=== PATIENT | female | born 1985 | race Asian ===

== ENCOUNTER → 2020-07-20 10:21 | Outpatient (CLI) | payer BC, SELFPAY ==
--- NOTE | ~2020-07-20 | US_ITS ---
EXAMINATION: US thyroid DATE: 07/20/2020 10:43 INDICATION: Dysphagia. Anterior neck pain. TECHNIQUE: Multiple ultrasound images of the thyroid were obtained. COMPARISON: None. FINDINGS: The right thyroid lobe measures 5.5 x 1.1 x 1.9 cm. The left thyroid lobe measures 5.1 x 1.5 x 2.0 c m. In the left thyroid lobe, there is a 6 mm solid, very hypoechoic, feqph-grdy-vmxc nodule with ill -defined margin without echogenic foci (TI-RADS TR4). In the left thyroid lobe, there is a 6 mm solid , very hypoechoic, eikju-wdag-ipjo nodule with smooth margin without echogenic foci (TR4). In the lef t thyroid lobe, there is a 5 mm solid, very hypoechoic, xfyiq-injz-vemf nodule with smooth margin wit hout echogenic foci (TR4). IMPRESSION: 1. Small thyroid nodules, likely not clinically significant. No follow-up is needed. Reviewed, dictated and finalized at location A. LABOR DELIVERY IMPRESSION: 1. Small thyroid nodules, likely not clinically significant. No follow-up is ne eded.
== END ==
PROVIDERS: PCP Registered Nurse; Visit Provider Registered Nurse
DX: R13.10 Dysphagia, unspecified (principal); Z68.27 Body mass index [BMI] 27.0-27.9, adult; M54.2 Cervicalgia; E04.2 Nontoxic multinodular goiter
CPT/HCPCS: 76536

== ENCOUNTER 2024-12-10 21:29 | Observation (INO) | payer OTHER, SELFPAY ==
--- NOTE | ~2024-12-10 | CT_ITS ---
CLINICAL INDICATION: COMPARISON: . TECHNIQUE: Multiple contiguous axial images of the abdomen and pelvis were performed following the ad ministration of with 100 mL Omnipaque-350 intravenous contrast The dose-length product (DLP) was 406.65 mGy-cm. Automated exposure control and iterative reconstruction technique were employed. FINDINGS/OBSERVATIONS: Visualized lower thorax: The bilateral lung bases are clear. The heart is of normal size, without pericardial effusion. Small hiatal hernia is present. Liver: The liver demonstrates homogeneous enhancement and is not enlarged. Gallbladder and biliary system: The gallbladder is only minimally distended, and otherwise unremarkable. Pancreas: The pancreas enhances homogeneously without ductal dilatation. Spleen: The spleen enhances homogeneously and is not enlarged. Kidneys: The bilateral kidneys enhance symmetrically without hydronephrosis or renal calculi. Adrenal glands: Unremarkable. Gastrointestinal tract: Fecal stasis within the colon. Appendix: The appendix is fluid-filled, and hyperemic. The caliber of the appendix is increased measuring up to 9.5 mm. Significant surrounding inflammatory change is present. These findings taken together are co nsistent with acute appendicitis, for which clinical correlation is needed. Vasculature: Unremarkable. Lymph nodes: No pathologically enlarged or morphologically suspicious lymph nodes within the retroperitoneum or at the root of the mesentery. Pelvic structures: The bladder is decompressed and otherwise unremarkable. The uterus is anteverted and anteflexed. Body wall and musculoskeletal: Small fat-containing umbilical hernia. No significant degenerative disease within the lower thoracic or lumbosacral spine. IMPRESSION: Acute appendicitis, as detailed above. Reviewed, dictated and finalized at location A.
[2024-12-10 21:31] VITALS: BP 124/93; PULSE 112; RESP 15; TEMP 36.1; O2SAT 100
--- OUTSIDE RECORDS SUMMARY | 2024-12-10 21:32 | XMS_ITS | Clinical Summary ---
Author Organization [facility] Address [address] [place] [id number] Care Team Providers Care Yarn Conditioner Name Role Phone Adriana Sousa Rao ROSARIO Primary Care Provider [phone] Allergies No known active allergies Medications Vitamin D, Ergocalciferol, 19782 units CapIndications: Vitamin D deficiency Take 1 capsule by mouth once a week. 12 capsule 12/22/2022 Active Active Problems Problem Noted Date Diagnosed Date Vitamin D deficiency 08/31/2018 Resolved Problems Problem Noted Date Diagnosed Date Resolved Date BMI 27.0-27.9,adult 08/31/2018 12/07/19 23 Family History * Patient is adopted Medical History Relation Comments No Known Problems Daughter 1 No Known Problems Daughter 2 No Known Problems Son Relation Status Comments Daughter 1 Alive Daughter 2 Alive Son Alive Social History Tobacco Use Types Packs/Day Years Used Date Smoking Tobacco: Every Day Cigarettes Smokeless Tobacco: Never Tobacco Cessation:Ready to Q uit: No; Counseling Given: Yes Comments:2-3 cigs per day for the last 1 year Alcohol Use Standard Drinks/Week Comments Not Currently 0 (1 standard drink = 0.6 oz pur e alcohol) AUDIT-C Answer Date Recorded Frequency of Alcohol Consumption 2-4 times a mon08/31/2018 Average Number of Drinks Not on file 019 Frequency of Binge Drinking Not on file 08/08 PHQ-2 Answer Date Recorded Patient Health Questionnaire-2 Score 0 12/06/2022 Comments No Sex and Gender Information Value Date Recorded Sex Assigned at Not on file Legal Sex Female 6:56 PM CDT Gender Identity Not on file Sexual Orientation Not on file Last Filed Vital Signs Vital Sign Reading Time Taken Comments Blood Pressure 104/76 12/06/2022 9:36 AM CDT Pulse 80 12/06/2022 9:36 AM CDT Temperature 36.7 C (98.1 F) 12/06/2022 9:36 AM CDT Respiratory Rate 18 12/06/2022 9:36 AM CDT Oxygen Saturation 98% 12/06/2022 9:36 AM CDT Inhaled Oxygen Concentration - - Weight 70.2 kg (154 lb 12.8 oz) 12/06/2022 9:36 AM CDT Height 157.5 cm (5' 2 ) 12/06/2022 9:36 AM CDT Body Mass Index 28.31 12/06/2022 9:36 AM CDT Plan of Treatment Health Maintenance Due Date Last Done Comments Cervical Cancer Screening Pa p Smear (Age 30 to 64) Every 3 Years 1987 Hepatitis B Vaccines (1 of 3 - 19+ 3-dose series) 2006 Pneumococcal Vaccine: Pediat rics (0 to 5 Years) and At-Risk Patients (6 to 49 Years) (1 of 2 - PCV) 2006 Cervical Cancer Screening Pa p with HPV Testing (Age 30 to 64) Every 5 Years 2017 Cervical Cancer Screening with HPV 2017 Annual Physical 12/07/2023 12/06/2022 COVID-19 Vaccine (2023-2 5 season) 2024 PHQ-2 (Physician [place]) 08/07/2024 12/06/2022 DTaP, Tdap and Td Vaccines ( 2 - Td or Tdap) 03/03/2026 03/03/2016 Hepatitis C Completed 07/09/2020 HPV Vaccines Aged Out No longer eligi ble based on patient's age to complete this topic Meningococcal B Vaccine Aged Out No l onger eligible based on patient's age to complete this topic Meningococcal Vaccine Aged Out No samantha jad eligible based on patient's age to complete this topic RSV Immunizations Under 20 Months Aged Out No longer eligible based on patient's age to complete this topic Procedures Procedure Name Priority Date/Time Associated Diagnosis Comments HEPATITIS C ANTIBODY W/RFX TO HCV RNA Routine 07/09/2020 2:48 PM WIND TURBINE SERVICE TECHNICIAN from Last 3 Months or Most Recently Relevant to Health Maintenance Results * HEPATITIS C ANTIBODY W/RFX TO HCV RNA (07/09/2020 2:48 PM WIND TURBINE SERVICE TECHNICIAN) HEPATITIS C AB NON-REACTI VE NON-REACT ROSITA [facility] SIGNAL TO CUTOFF 0.01 <[address] [facility] Comment: HCV antibody was non-reactive. There is no laboratory evidence of HCV infection. In most cases, no further action is required. However, if recent HCV exposure is suspected, a test for HCV RNA (test code 20632) is suggested. For additional information please refer to http://education.Peerby/faq/JLU03b3 (This link is being provided for informational/ educational purposes only.) 07/09/2020 2:48 PM WIND TURBINE SERVICE TECHNICIAN 07/09/2020 2:51 PM WIND TURBINE SERVICE TECHNICIAN Narrative [facility] - 07/14/2020 11:29 AM WIND TURBINE SERVICE TECHNICIAN FASTING:YES FASTING: YES Adriana ROSARIO LABORATORY Final Resul t [facility] [id number] [place] [id number] from Last 3 Months or Most Recently Relevant to Health Maintenance Insurance [employer] Care Teams Yarn Conditioner Relationship Specialty Start Date End Date Adriana Sousa APNP [address] [place] [address] PCP - General NURSE PRACTITIONER 08/31/18
--- OUTSIDE RECORDS SUMMARY | 2024-12-10 21:32 | XMS_ITS | Clinical Summary ---
Author Organization [facility] Address [address] [place] [address] Care Team Providers Care Crown Perforator Operator Name Role Phone Unavailable Primary Care Provider Unavailabl e Source Comments [facility],non-owned Affiliates and Associated Physician Practices is amultiple site organization consisting of ambulatory clinics and hospital sitesin [place], [place], [place] and [place]. This disclosure is being madepursuant to the Care Everywhere program and may not contain all information available regarding this patient. Last updated 18.[employer] Allergies No known active allergies Medications * Be aware that medications may not be up to date on this document. Alwaysverify current medications with the patient. No known medications Social History Tobacco Use Types Packs/Day Years Used Date Smoking Tobacco: Never Smokeless Tobacco: Never Comments Unknown Sex and Gender Information Value Date Recorded Sex Assigned at Not on file Legal Sex Female 10:05 AM CDT Gender Identity Not on file Sexual Orientation Not on file Last Filed Vital Signs Vital Sign Reading Time Taken Comments Blood Pressure 106/68 04/21/2017 3:24 PM CDT Pulse 63 04/21/2017 3:24 PM CDT Temperature 36.7 C (98.1 F) 04/21/2017 3:24 PM CDT Respiratory Rate 16 04/21/2017 3:24 PM CDT Oxygen Saturation 98% 04/21/2017 3:24 PM CDT Inhaled Oxygen Concentration - - Weight 68 kg (150 lb) 04/21/2017 3:24 PM CDT Height 157.5 cm (5' 2 ) 04/21/2017 3:24 PM CDT Body Mass Index 27.44 04/21/2017 3:24 PM CDT Plan of Treatment Health Maintenance Due Date Last Done Comments HIV SCREENING 2002 HEPATITIS C SCREENING 09/21/2005 DTAP/TDAP/TD VACCINES (1 - Tdap) 2006 HEPATITIS B VACCINE (1 of 3 - 19+ 3-dose series) 2006 COVID-19 VACCINE (1 - 2023-2 5 season) 2024 DEPRESSION SCREENING 08/07/2024 INFLUENZA VACCINE (Season Ended) 2025 ZOSTER VACCINE (1 of 2) 2037 HIB VACCINE Aged Out No longer eligi ble based on patient's age to complete this topic HPV VACCINE Aged Out No longer eligi ble based on patient's age to complete this topic MENINGOCOCCAL (Group B) VACC INE SHARED DECISION-MAKING Aged Out No longer eligibl e based on patient's age to complete this topic MENINGOCOCCAL GROUPS A/C/Y/W VACCINE Aged Out No longer eligible b ased on patient's age to complete this topic PNEUMOCOCCAL VACCINE Aged Out No long er eligible based on patient's age to complete this topic Insurance [facility] [place] [id number] ANTH
--- OUTSIDE RECORDS SUMMARY | 2024-12-10 21:32 | XMS_ITS | Data Portability ---
Author Organization [facility] [place] Address [address] [place] [address] Care Team Providers Care Bottle Dealer Name Role Phone ARACELI GAMBLE Primary Care Provider Assessment No assessment recorded. Plan of Treatment Reminders Order Date Submit Date Provider Last Modified By Organization Details Last Modified Time Details Appointments None recorded. Lab beta-HCG, qualitative , serum or plasma 2021 [facility] (Lab), [address], [place], [address], 04:17:35 CBC w/ auto diff 2021 [facility] (Lab), [address] [place], [address], 2 04:17:31 CMP, serum or plasma 2021 [facility] (Lab), [address] [place], [address], 2 04:17:32 HbA1c (hemoglobin A1c), blood 2021 [facility] (Lab), [address] [place], [address], 2 04:17:32 TSH, serum or plasma 2021 [facility] (Lab), [address] [place], [address], 04:17:33 prolactin, serum 2021 [facility] (Lab), [address], [place], [address], 2 04:17:33 FSH (follicle-s timulating hormone), serum 2021 [facility] (Lab), [address], [place], [address], 04:17:34 lh (luteinizin g hormone), serum 2021 [facility] (Lab), [address], [place], [address], 04:17:34 Referral None recorded. Procedures None recorded. Surgeries None recorded. Imaging US, pelvis [address], [facility] [address], [address], [place], [address], 21:38:29 US, transvagina l [address], [facility] [address], [address], [place], [address], 21:38:29 US, pelvis, complete 2021 [facility] [address], [address], [place], [address], 05:01:41 Medication Orders None recorded. Patient TargetsNo targets recorded. Patient InstructionsNo instructions recorded. Reason for Referral None Reported. Results Created Date Observation Date Name Description Value Unit Range Abnormal Flag Note LastModifiedBy Organization Detail LastModifiedTime 07/15/20 22 07/15/2022 CBC W/DIF F WBC 6.2 10'3/ uL 3.6-10 .2 Not Available [facility] (Lab) [address], [place], [address], 07/16/2022 04:17:31 07/15/20 22 07/15/2022 CBC W/DIF F RBC 4.25 10'6/ uL (based on docume nted legal sex) 4.10-5 .30 Not Available [facility] (Lab) [address], [place], [address], 07/16/2022 04:17:31 07/15/20 22 07/15/2022 CBC W/DIF F HGB 12.2 g/dL (based on docume nted legal sex) 11.9-1 5.8 Not Available [facility] (Lab) [address], [place], [address], 07/16/2022 04:17:31 07/15/20 22 07/15/2022 CBC W/DIF F HCT 38.4 % (based on docume nted legal sex) 37.4-4 8.3 Not Available [facility] (Lab) [address], [place], [address], 07/16/2022 04:17:31 07/15/20 22 07/15/2022 CBC W/DIF F MCV 90.4 fL 82.0-9 9.0 Not Available [facility] (Lab) [address], [place], [address], 07/16/2022 04:17:31 07/15/20 22 07/15/2022 CBC W/DIF F MCH 28.7 pg 27.0-3 3.0 Not Available [facility] (Lab) [address], [place], [address], 07/16/2022 04:17:31 07/15/20 22 07/15/2022 CBC W/DIF F MCHC 31.8 g/dL 32.0-3 6.0 low Not Available [facility] (Lab) [address], [place], [address], 07/16/2022 04:17:31 07/15/20 22 07/15/2022 CBC W/DIF F RDW 12.3 % 11.0-1 5.0 Not Available [facility] (Lab) [address], [place], [address], 07/16/2022 04:17:31 07/15/20 22 07/15/2022 CBC W/DIF F plt 332 10'3/ uL 150-45 0 Not Available [facility] (Lab) [address], [place], [address], 07/16/2022 04:17:31 07/15/20 22 07/15/2022 CBC W/DIF F MPV 10.7 fL 9.8-12 .7 Not Available [facility] (Lab) [address], [place], [address], 07/16/2022 04:17:31 07/15/20 22 07/15/2022 CBC W/DIF F NRBC's 0.0 % 0 Not Available [facility] (Lab) [address], [place], [address], 07/16/2022 04:17:31 07/15/20 22 07/15/2022 CBC W/DIF F absolute NRBCs 0.0 10'3/ uL 0 Not Available [facility] (Lab) [address], [place], [address], 07/16/2022 04:17:31 07/15/20 22 07/15/2022 CBC W/DIF F neutrophils 63.1 % 37.0-7 2.0 Not Available [facility] (Lab) [address], [place], [address], 07/16/2022 04:17:31 07/15/20 22 07/15/2022 CBC W/DIF F lymphocytes 30.3 % 16.0-4 8.0 Not Available [facility] (Lab) [address], [place], [address], 07/16/2022 04:17:31 07/15/20 22 07/15/2022 CBC W/DIF F monocytes 3.5 % 4.0-14 .0 low Not Available [facility] (Lab) [address], [place], [address], 07/16/2022 04:17:31 07/15/20 22 07/15/2022 CBC W/DIF F eosinophils 2.1 % 0.0-9. 0 Not Available [facility] (Lab) [address] [facility], [place], [address], 07/16/2022 04:17:31 07/15/20 22 07/15/2022 CBC W/DIF F basophils 0.8 % 0.0-2. 0 Not Available [facility] (Lab) [address] [facility], [place], [address], 07/16/2022 04:17:31 07/15/20 22 07/15/2022 CBC W/DIF F immature granulocytes 0.2 % no define d refere nce range Not Available [facility] (Lab) [address], [place], [address], 07/16/2022 04:17:31 07/15/20 22 07/15/2022 CBC W/DIF F absolute neutrophils 3.9 10'3/ uL 1.1-6. 0 Not Available [facility] (Lab) [address] [facility], [place], [address], 07/16/2022 04:17:31 07/15/20 22 07/15/2022 CBC W/DIF F absolute lymphocytes 1.9 10'3/ uL 0.7-3. 4 Not Available [facility] (Lab) [address] [facility], [place], [address], 07/16/2022 04:17:31 07/15/20 22 07/15/2022 CBC W/DIF F absolute monocytes 0.2 10'3/ uL 0.3-1. 0 low Not Available [facility] (Lab) [address] [facility], [place], [address], 07/16/2022 04:17:31 07/15/20 22 07/15/2022 CBC W/DIF F absolute eosinophils 0.1 10'3/ uL 0.0-0. 6 Not Available [facility] (Lab) [address] [facility], [place], [address], 07/16/2022 04:17:31 07/15/20 22 07/15/2022 CBC W/DIF F absolute basophils 0.1 10'3/ uL 0.0-0. 1 Not Available [facility] (Lab) [address] [facility], [place], [address], 07/16/2022 04:17:31 07/15/20 22 07/15/2022 CBC W/DIF F absolute immature granulocytes 0.0 10'3/ uL 0.00-0 .10 07/16 12:59 AM: P indic ates parti al resul ts on a panel have been relea sed. Addit ional resul ts will follo w. 07/16 12:59 AM: This resul t has been final verif ied. No addit ional or najera ed resul ts are expec kim. Not Available [facility] (Lab) [address] [facility], [place], [address], 07/16/2022 04:17:31 07/15/20 22 07/15/2022 HEMOG LOBIN A1C hemoglobin A1C 5.5 % 0-5.6 The Ameri can Diabe erum Assoc iatio n recom mends that a prima ry goal of thera py shelly valle be a HBA1C of < 7% and that physi cians shoul d reeva luate the treat ment regim en in patie nts with HBA1C value s consi stent ly > 8%. <5.7% Marce l 5.7 - 6.4% Incre ased risk for diabe erum >=6.5 % Diagn ostic of diabe erum <7.0% Goal of thera py >8.0% Actio n sugge sted Not Available [facility] (Lab) [address] [facility], [place], [address], 07/16/2022 04:17:32 07/15/20 22 07/15/2022 CMP(C OMPRE HENSI VE METAB OLIC PANEL ) sodium 139 mmol/ L 133-14 6 Not Available [facility] (Lab) [address] [facility], [place], [address], 07/16/2022 04:17:32 07/15/20 22 07/15/2022 CMP(C OMPRE HENSI VE METAB OLIC PANEL ) potassium 3.7 mmol/ L 3.5-5. 1 Not Available [facility] (Lab) [address] [facility], [place], [address], 07/16/2022 04:17:32 07/15/20 22 07/15/2022 CMP(C OMPRE HENSI VE METAB OLIC PANEL ) chloride 103 mmol/ L 98-107 Not Available [facility] (Lab) [address] [facility], [place], [address], 07/16/2022 04:17:32 07/15/20 22 07/15/2022 CMP(C OMPRE HENSI VE METAB OLIC PANEL ) carbon dioxide 28 mmol/ L 21-31 Not Available [facility] (Lab) [address] [facility], [place], [address], 07/16/2022 04:17:32 07/15/20 22 07/15/2022 CMP(C OMPRE HENSI VE METAB OLIC PANEL ) anion gap 8 mmol/ L 4-13 Not Available [facility] (Lab) [address] [facility], [place], [address], 07/16/2022 04:17:32 07/15/20 22 07/15/2022 CMP(C OMPRE HENSI VE METAB OLIC PANEL ) blood urea nitrogen 11 mg/dL 7-25 Not Available [facility] (Lab) [address] [facility], [place], [address], 07/16/2022 04:17:32 07/15/20 22 07/15/2022 CMP(C OMPRE HENSI VE METAB OLIC PANEL ) creatinine 0.82 mg/dL 0.60-1 .30 Not Available [facility] (Lab) [address], [place], [address], 07/16/2022 04:17:32 07/15/20 22 07/15/2022 CMP(C OMPRE HENSI VE METAB OLIC PANEL ) egfrcr (CKD-epi 2020) >90 mL/mi n/1.7 3_m2 >=60 Not Available [facility] (Lab) [address], [place], [address], 07/16/2022 04:17:32 07/15/20 22 07/15/2022 CMP(C OMPRE HENSI VE METAB OLIC PANEL ) calcium 9.4 mg/dL 8.3-10 .5 Not Available [facility] (Lab) [address], [place], [address], 07/16/2022 04:17:32 07/15/20 22 07/15/2022 CMP(C OMPRE HENSI VE METAB OLIC PANEL ) glucose 107 mg/dL 70-100 high Not Available [facility] (Lab) [address], [place], [address], 07/16/2022 04:17:32 07/15/20 22 07/15/2022 CMP(C OMPRE HENSI VE METAB OLIC PANEL ) protein, total 6.9 g/dL 6.4-8. 3 Not Available [facility] (Lab) [address], [place], [address], 07/16/2022 04:17:32 07/15/20 22 07/15/2022 CMP(C OMPRE HENSI VE METAB OLIC PANEL ) albumin 4.3 g/dL 3.5-5. 0 Not Available [facility] (Lab) [address], [place], [address], 07/16/2022 04:17:32 07/15/20 22 07/15/2022 CMP(C OMPRE HENSI VE METAB OLIC PANEL ) ALT 11 units /L 9-43 Not Available [facility] (Lab) [address] [facility], [place], [address], 07/16/2022 04:17:32 07/15/20 22 07/15/2022 CMP(C OMPRE HENSI VE METAB OLIC PANEL ) alkaline phosphatase 60 units /L 34-104 Not Available [facility] (Lab) [address] [facility], [place], [address], 07/16/2022 04:17:32 07/15/20 22 07/15/2022 CMP(C OMPRE HENSI VE METAB OLIC PANEL ) AST 16 units /L 13-39 Not Available [facility] (Lab) [address] [facility], [place], [address], 07/16/2022 04:17:32 07/15/20 22 07/15/2022 CMP(C OMPRE HENSI VE METAB OLIC PANEL ) bilirubin, total 0.6 mg/dL 0.2-1. 2 Not Available [facility] (Lab) [address] [place], [address], 07/16/2022 04:17:32 07/15/20 22 07/15/2022 TSH, REFLE X FREE T4 TSH 1.19 uIU/m L 0.30-5 .33 Not Available [facility] (Lab) [address] [facility], [place], [address], 07/16/2022 04:17:33 07/15/20 22 07/15/2022 PROLA CTIN prolactin, total 11.00 NG/mL 4.79-2 3.30 This assay was perfo rmed using [employer] n reage nts and test kits. Value s obtai tunde with other assay metho ds or kits canno t be used inter najera eably . Not Available [facility] (Lab) [address] [place] [facility] [place], [address], 07/16/2022 04:17:33 07/15/20 22 07/15/2022 LH (LUTE NIZIN G HORMO NE) LH 4.1 mIU/m L This assay was perfo rmed using [employer] reage nts and test kits. Value s obtai tunde with other assay metho ds or kits canno t be used inter najera eay . Femal es Mid-F ollic ular: 2.4-1 2.6 mIU/m L Mid-C ycle: 14.0- 95.6 mIU/m L Mid-L uteal : 1.0-1 1.4 mIU/m L Postm enopa use: 7.7-5 8.5 mIU/m L Not Available [facility] (Lab) [address] [facility], [place], [address], 07/16/2022 04:17:34 07/15/20 22 07/15/2022 FSH FSH 7.2 mIU/m L This assay was perfo rmed using [employer] reage nts and test kits. Value s obtai tunde with other assay metho ds or kits canno t be used inter [facility] eay . Femal es Folli cular : 3.5-1 2.5 mIU/m L Ovula tion: 4.7-2 1.5 mIU/m L Lutea l: 1.7-7 .7 mIU/m L Postm enopa use: 25.8- 134.8 mIU/m L Not Available [facility] (Lab) [address] [place], [address], 07/16/2022 04:17:34 07/15/20 22 07/15/2022 HCG(H UMAN CHORI ONIC GONAD OTROP IN),Q UAL SERUM , REFLE X QUANT ITATI VE bhcg, qualitative, blood Negati ve negati ve Not Available [facility] (Lab) [address] , [place], [address], 07/16/2022 04:17:34 07/19/20 22 07/19/2022 US, pelvi s No observ ation record ed. [email or web address] [place] [address], [place], [address], 07/19/2022 16:34:47 07/19/20 22 07/19/2022 US, trans vagin al No observ ation record ed. [email or web address] [place] [address], [place], [address], 07/19/2022 16:34:37 07/19/20 22 07/19/2022 US, pelvi s No observ ation record ed. [email or web address] [address] [place], [place], [address], 07/27/2022 12:20:36 Result Notes None recorded. Problems Name Problem SNOMED Code Status Onset Date Resolution Date Notes Provider Name and Address Organization Details Recorded Time Placenta previa with hemorrhag e - not delivered 623927009 Active 2013 Hemorrhag e from placenta previa, antepartu m;Practic e ID: 0001 Not Available [facility] 0 21:48:40 Routine care Active 2013 Supervisi on of other normal ;Practice ID: 0001 Not Available [facility] 0 21:48:40 Delivery normal 03265282 Active 2013 Normal delivery; Practice ID: 0001 Not Available [facility] 0 21:48:41 Single live from alvarez 818890686 Active 2013 Mother with single liveborn; Practice ID: 0001 Not Available [facility] 0 21:48:41 Postpartu m care Active 2013 Postpartu m follow-up ;Practice ID: 0001 Not Available [facility] 0 21:48:41 Adult health examinati on Active 2014 Routine general medical examinati on at a health care facility; Practice ID: 0001 Not Available [facility] 0 21:48:41 Specializ ed medical examinati on Active 2014 Routine gynecolog ical examinati on;Practi ce ID: 0001 Not Available [facility] 0 21:48:41 Screening for malignant neoplasm of cervix Active 2014 Pap Smear;Pra ctice ID: 0001 Not Available [facility] 0 21:48:41 Secondary amenorrhe a 179391897 Active 2015 Secondary amenorrhe a;Practic e ID: 0001 Not Available [facility] 0 21:48:41 Nausea and vomiting 42661397 Active 2015 Nausea with vomiting, unspecifi ed;Practi ce ID: 0001 Not Available [facility] 0 21:48:41 detection examinati on Active 2015 Encounter for test, result positive; Practice ID: 0001 Not Available [facility] 0 21:48:41 Normal in multigrav rosy 41680292632 4106 Active 2015 Encounter for suprvsn of normal , first trimester ;Practice ID: 0001 Not Available [facility] 0 21:48:42 Term delivered 73720695 Active 2015 Encounter for full-term uncomplic ated delivery; Practice ID: 0001 Not Available [facility] 0 21:48:43 Gestation period, 37 weeks 61167689 Active 2015 37 weeks gestation of ;Practice ID: 0001 Not Available [facility] 0 21:48:43 Lochia finding Active 2015 Encounter for routine postpartu m follow-up ;Practice ID: 0001 Not Available 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) w/o abn findings; Practice ID: 0001 Not Available [facility] 0 21:48:43 Lump of axillary tail of right breast 07115954125 4106 Active 2017 Unspecifi ed lump in axillary tail of the right breast;Pr actice ID: 0001 Not Available [facility] 0 21:48:43 Body mass index 25-29 - overweigh t 907941317 Active 2017 Body mass index (BMI) 27.0-27.9 , adult;Rec orded Elsewhere : No Locati on: [facility] [address] So urce: EHR Chron ic: N Practic e ID: 0001 Bill able Time: 04:45:00 PM Not Available [facility] 0 21:48:44 Ultrasono graphy Active 2013 screening for malformat ion using ultrasoni cs;Practi ce ID: 0001 Not Available [facility] 0 21:48:45 screening Active 2013 screening for malformat ion using ultrasoni cs;Practi ce ID: 0001 Not Available [facility] 0 21:48:45 Congenita l malformat ion 597169223 Active 2013 screening for malformat ion using ultrasoni cs;Practi ce ID: 0001 Not Available [facility] 0 21:48:45 Atypical squamous cells of undetermi tunde significa nce on cervical Papanicol aou smear 936665783 Active 2014 Papanicol aou smear of cervix with atypical squamous cells of undetermi tunde significa nce (ASC-US); Recorded Elsewhere : No Locati on: [facility] [address] So urce: EHR Chron ic: N Practic e ID: 0001 Bill able Time: 12:30:00 PM Not Available [facility] 0 21:48:47 Breast lump 22130469 Active 2017 Unspecifi ed lump in unspecifi ed breast;Re corded Elsewhere : No Locati on: [facility] [address] So urce: EHR Chron ic: N Practic e ID: 0001 Bill able Time: 11:00:00 AM Not Available [facility] 0 21:48:47 Notes:Encounter for antenata l screening of mother Recorded Elsewhere: No Location: [facility] [address] Source: EHR Chronic: N Practice ID: 0001 Billable Time: 08:30:00 AM Encounter for screening of mother Practice ID: 0001 Encounter for screening of mother Recorded Elsewhere: No Location: [facility] [address] Source: EHR Chronic: N Practice ID: 0001 Billable Time: 11:00:00 AM Encounter for screening of mother Practice ID: 0001 Problem Notes None recorded. Procedures Surgical History Date Name Laterality Status Provider Name and Address Organization Details Recorded Time 0 Date of Last Pap Smear completed Nicole Smith [facility] 07/15/2022 15:17:34 Imaging Results Imaging Date Name Status LastModified by Organization Details LastModified Time 07/19/2022 US, pelvis completed [email or web address] [place] [address], [place], [address], 07/19/2022 16:34:47 07/19/2022 US, transvaginal completed [email or web address] [facility] [address], [place], [address], 07/19/2022 16:34:37 07/19/2022 US, pelvis completed [email or web address] [address], [place], [address], 07/27/2022 12:20:36 Procedure Notes None recorded. Medical Equipment None Reported. Allergies No known drug allergies Medications Name Sig Start Date Stop Date Status Note LastModified by Organization Details LastModified Time Reglan 10 mg tablet take 1 tablet by oral route 4 times every day 30 minutes before meals and at bedtime 05/02 completed [facility] ed Elsewher e: No [facility] By: vijay Putnam r DateTime : 09/04/19 16 10:30:00 AM Not Available Not Available Not Available Vitamin D2 1,250 mcg (50,000 unit) capsule take 1 capsule by oral route every week 05/02 completed Prescrib ed Elsewher e: No Locat ion: [facility] odify By: vijay Putnam r DateTime : 10/20/19 16 03:40:34 PM Not Available Not Available Not Available One Daily 27 mg iron-800 mcg tablet take 1 tablet by oral route every day 05/02 completed Prescrib ed Elsewher e: Yes Loca tion: [facility] odify By: vijay Putnam r DateTime : 03/05/20 14 01:45:00 PM Not Available Not Available Not Available Vitals Date Recorded Body height Body mass index (BMI) Body weight Systolic blood pressure Diastolic blood pressure Provider Name and Address Organization Details Last Updated DateTime 07/15/2022 157.48 cm 27.9 kg/m2 14916.91 g 112 mm[Hg] 64 mm[Hg] Nicolesmita Mcmahanzoe [facility] 15:17:10 Social History Question Answer Notes LastModified by Organizat ion Details LastModified Time Tobacco Smoking Status Current Every Day Smoker Nicolesmita Mcmahanzoe null, [facility] 07/15/2022 15:20:34 What Is Your Level Of Alcohol Consumption? Occasional Information not available 07/15/2022 Are You Blind Or Do You Have Difficulty Seeing? No Information not available 07/15/2022 Are You Deaf Or Do You Have Serious Difficulty Hearing? No Information not available 07/15/2022 What Type Of Diet Are You Following? REGULAR Information not available 07/15/2022 Sex: Unknown Functional Status Question Answer Note LastModified by Organizat ion Details LastModified Time Do you have difficulty walking or climbing stairs? No Information not available 07/15/2022 Are you able to walk? YESWOREST Information not available 07/15/2022 Are you able to care for yourself? Yes Information not available 07/15/2022 Do you have difficulty dressing or bathing? No Information not available 07/15/2022 What is your exercise level? Moderate Information not available 07/15/2022 Mental Status None recorded. Family History Nothing Reported Notes:Adopted Medical History Condition Response Allergies (Food, seasonal, environmental ) N Other N Breast Cancer N Drug/Latex Allergies/Reactions N Blood Transfusion N Dermatologic Disorders N Lung Disease N Defects or Inherited Disease N Breast Problem N Gestational Diabetes N Hematologic disorders N Anesthesia Complications N History of STI N Deep Vein Thrombosis N Polycystic ovary syndrome N Anxiety Disorder N Autoimmune disease N Arthritis N Infertility N Polyps N Acid Reflux (GERD) N History of abnormal pap N Cancer N Stroke N Varicosities N Neurologic/Epilepsy N Endometriosis N High Cholesterol N Headaches N Fibromyalgia N Kidney Disease N Heart Problems N Kidney or Bladder Problems N Thyroid Problems N GI Problems N Eating Disorder N Anemia N Art (IVF or FET) N Psychiatric Illness N Ovarian Cancer N Diabetes N Pulmonary (TB, Asthma) N Hepatitis/Liver Disease N No Past Medical History N Eczema N Urinary Tract Infection N Abuse/Domestic Violence N Asthma N Trauma/Violence N Depression/ depression N Heart Disease N Pre-Eclampsia N Hypertension N Osteoporosis N Thrombophilias N Gynecological History Statement/Question Response Abnormal Pap Y Flow Light Date of LMP 07/10/2022 Was last menstrual period normal N STIs/STDs Y HPV Vaccine N Duration of Flow (days) 3 Current Control Method Partner Vas ectomy Are cycles usually normal Y Sexually Active? Y Age of first menstrual cycle 13 Date of Last Pap Smear 10/22/2019 Sexual Problems? N LMP Approximate Obstetrics History GPAL:G 3 P 0 0 0 3 Type Value Living 3 Total 3 Past Encounters Encounter ID Performer Location Encounter Start Date Encounter Closed Date Diagnosis/Indication Diagnosis SNOMED-CT Code Diagnosis ICD10 Code Diagnosis Note [id number] Natasha [facility] [address] [address] 07/15/2022 14:57:33 07/19/2022 15:11:17 Irregular periods 93000912 N92.6 Update TVUSUpdate LabsMenstr ual diary recommende dReach out with US/Labs for next stepsDue pap/hpv 3Declin ed need std screen Patient is to contact office or go to nearest ED/Urgent care if fever >/= 100.1, pain, excessive bleeding, unusual drainage or swelling in area of concern; or experienci ng worsening sx's or new onset of concerning sx's. Understand ing verbalized . All questions answered to patient satisfacti on. Time spent in visit is a total of 30 mins with at least 50% of visit consisting of counseling and review of plan of care. [id number] Sami Khalil MD [place] [address] [address] 07/19/2022 15:28:08 07/19/2022 16:15:20 Irregular periods 04536156 N92.6 Health Concerns Section Related Observation LastModified by Organization Detai ls LastModified Time None Recorded Concern Status LastModified by Organization Details LastModified Time None Recorded Advance Directives Directive None Recorded Payers Encounter Date Sequence Insurance Name Policy Number Policy Christianson Covered Member ID Christianson Member ID Guarantor Name 07/15/2022 1 [place] [id number] Amari Lees [id number] Jaky Lees 07/19/2022 1 [place] [id number] Amari Lees [id number] Ajkygonzalez Lees Notes Date Note Type Note Provider Name and Address Organization Details Recorded Time 07/15/2022 text/html Irregular PeriodsReported bypatient.Onset/Flo ng:past 2 cycles Quality:moderate Duration:7 days/month; 7-10 days/month Severity:moderate Associated Symptoms:fatigue Cycle length is starting to vary and flow is changing. JAEL Holt- [address], [place], [address], [facility] 07/18/2022 09:24:38 OBGyn Episode Ob Episode Information Episode Created Date Number of Fetuses Patient Bloodtype Patient rh Status Prepregnancy Weight lbs Domestic Partner Domestic Partner Phone Father Name Accident Report Clerk Status 07/15/20 22 1 CLOSED Fetus Data First Name Last Name Admitted to NICU Weight (g) Sex Living Outcome Pediatric Complications Fetus ID Race Codes Race Delivery Type 2891.64 9 M Full Term [id number] Vaginal Delivery Trung Calculation Initial Trung Date Initial Exam Date Initial Exam Provider Initial Ultrasound Date Last Menstrual Period Date Ultra Sound Weeks Gestation 0 Eighteen To Twenty Week Trung Update Ultra Sound Date Fundal Height At Umbil Quickening Date Ultra Sound Latest Weeks Gestation Final Turng Confirmed By Final Trung Confirmed Date Final Trung Date Ultra Sound Latest Days Gestation 0 0 Menstrual History Last Menstrual Date Menses Monthly On Bcp Conception Prior Menses Frequency Hcg Plus Date Menarche Onset Age Delivery Information Delivery Date Delivery Type Labor Anesthesia Weeks Gestation Incision Type Labor Labor Length Hrs Delivered By Post Complications Tubal Sterilization Discharge Date Comments 7 37 Discharge Information Feeding Method Contraceptive Method Maternal HG B and HCT Levels Ob Episode Information Episode Created Date Number of Fetuses Patient Bloodtype Patient rh Status Prepregnancy Weight lbs Domestic Partner Domestic Partner Phone Father Name Accident Report Clerk Status 07/15/20 22 1 CLOSED Fetus Data First Name Last Name Admitted to NICU Weight (g) Sex Living Outcome Pediatric Complications Fetus ID Race Codes Race Delivery Type 2721.55 2 F Full Term [id number] Vaginal Delivery Trung Calculation Initial Trung Date Initial Exam Date Initial Exam Provider Initial Ultrasound Date Last Menstrual Period Date Ultra Sound Weeks Gestation 0 Eighteen To Twenty Week Trung Update Ultra Sound Date Fundal Height At Umbil Quickening Date Ultra Sound Latest Weeks Gestation Final Trung Confirmed By Final Trung Confirmed Date Final Trung Date Ultra Sound Latest Days Gestation 0 0 Menstrual History Last Menstrual Date Menses Monthly On Bcp Conception Prior Menses Frequency Hcg Plus Date Menarche Onset Age Delivery Information Delivery Date Delivery Type Labor Anesthesia Weeks Gestation Incision Type Labor Labor Length Hrs Delivered By Post Complications Tubal Sterilization Discharge Date Comments 4 39 Discharge Information Feeding Method Contraceptive Method Maternal HG B and HCT Levels Ob Episode Information Episode Created Date Number of Fetuses Patient Bloodtype Patient rh Status Prepregnancy Weight lbs Domestic Partner Domestic Partner Phone Father Name Accident Report Clerk Status 07/15/20 22 1 CLOSED Fetus Data First Name Last Name Admitted to NICU Weight (g) Sex Living Outcome Pediatric Complications Fetus ID Race Codes Race Delivery Type 2721.55 2 F Full Term [id number] Vaginal Delivery Trung Calculation Initial Trung Date Initial Exam Date Initial Exam Provider Initial Ultrasound Date Last Menstrual Period Date Ultra Sound Weeks Gestation 0 Eighteen To Twenty Week Trung Update Ultra Sound Date Fundal Height At Umbil Quickening Date Ultra Sound Latest Weeks Gestation Final Trung Confirmed By Final Trung Confirmed Date Final Trung Date Ultra Sound Latest Days Gestation 0 0 Menstrual History Last Menstrual Date Menses Monthly On Bcp Conception Prior Menses Frequency Hcg Plus Date Menarche Onset Age Delivery Information Delivery Date Delivery Type Labor Anesthesia Weeks Gestation Incision Type Labor Labor Length Hrs Delivered By Post Complications Tubal Sterilization Discharge Date Comments 6 38 Discharge Information Feeding Method Contraceptive Method Maternal HG B and HCT Levels
[2024-12-10 21:48] LABS: Basophils Percent Auto 0.4 % (0.2-1.2); Eosinophils Absolute Auto 0.1 K/mm3 (0-0.3); Eosinophils Percent Auto 0.8 % (0-4.4); Hemoglobin 12.4 g/dL (12.0-15.0); Immature Granulocyte Absolute 0.05 K/mm3 (0.00-0.031); Immature Granulocyte Percent A 0.5 % (0-0.5); Lymphocytes Absolute Auto 2.06 K/mm3 (0.9-3.2); Mean Corpuscular HGB Conc 31.8 g/dl (32-36); Mean Corpuscular Hemoglobin 28.9 pg (26-34); Mean Corpuscular Volume 90.9 fl (80-100); Mean Platelet Volume 9.6 fl (7.4-10.4); Monocytes Absolute Auto 0.6 K/mm3 (0.1-0.6); Monocytes Percent Auto 5.2 % (2.6-8.5); Neutrophils Percent Auto 74.1 % (45.5-73.1); Platelet Count Result 347 k/mm3 (150-375); Red Blood Count 4.29 M/mm3 (4.2-5.4); Red Cell Distribution Width 12.6 % (11.5-14.5); White Blood Count 10.8 K/mm3 (4.5-10.0)
[2024-12-10 22:02] LABS: Alanine Aminotransferase 14 U/L (6-35); Albumin Level 4.6 g/dL (3.5-5.1); Alkaline Phosphatase 75 U/L (38-126); Anion Gap 9 mmol/L (4-12); Aspartate Amino Transferase 19 U/L (14-36); Bilirubin,Total 0.7 mg/dL (0.2-1.3); Blood Urea Nitrogen 10 mg/dL (7-17); Calcium 9.3 mg/dL (8.4-10.2); Carbon Dioxide 29 mmol/L (22-30); Chloride 99 mmol/L (98-107); Estimated CRCL calculation 93 ml/min; Estimated Glomerular Filt Rate > 60; Glucose 119 mg/dL (65-110); Lipase 68 U/L (23-300); Potassium 3.4 mmol/L (3.4-5.0); Sodium 137 mmol/L (137-145)
[2024-12-10 22:04] LABS: BEDSIDEPREGUCG Negative (Negative)
[2024-12-10 22:17] LABS: Add Urine Microscopic? YES; Appearance Urine Clear (Clear); Bacteria Urine Rare /hpf; Bilirubin Urine Negative (Negative); Blood Urine Negative (Negative); Color Urine Dark Yellow (Yellow); Glucose Urine UA Negative (Negative); Ketones Urine 1+ mg/dL (Negative); Leukocyte Esterase Ur Negative LEU/UL (Negative); Nitrate Urine Negative (Negative); Non Pathogenic Casts 0-2; Protein Urine Trace mg/dL (Negative); Specific Grav Ur 1.029 (1.001-1.035); Squamous Epithelial Cell Urine Moderate /hpf (Few); WBC Urine 0-5 /hpf (0-3); pH Urine 5.5 (5.0-9.0)
[2024-12-10 22:18] VITALS: BP 114/59; O2SAT 97
[2024-12-10 22:31] VITALS: BP 111/63; PULSE 94; RESP 16; O2SAT 100
--- OUTSIDE RECORDS SUMMARY | 2024-12-10 22:35 | XMS_ITS | Clinical Summary ---
Author Organization [facility] Address [address] [place] [address] Care Team Providers Care Sweet Pickled Fruit Maker Name Role Phone Unavailable Primary Care Provider Unavailabl e Source Comments [facility],non-owned Affiliates and Associated Physician Practices is amultiple site organization consisting of ambulatory clinics and hospital sitesin [place], [place], [place]. This disclosure is being madepursuant to the Care Everywhere program and may not contain all information available regarding this patient. Last updated 18.Edxact Allergies No known active allergies Medications * [...] patient's age to complete this topic Insurance [facility] [place] [id number] ANTH
--- OUTSIDE RECORDS SUMMARY | 2024-12-10 22:35 | XMS_ITS | Clinical Summary ---
Author Organization [facility] Address [address] [place] [id number] Care Team Providers Care Tenter Name Role Phone Adriana Sousa Rao ROSARIO Primary Care Provider [phone] Allergies No known active allergies Medications Vitamin D, Ergocalciferol, 49359 units CapIndications: Vitamin D deficiency Take 1 [...] Vaccine (2023-2 5 season) 2024 PHQ-2 (Physician [place]) 08/07/2024 12/06/2022 DTaP, Tdap and Td Vaccines [...] TO HCV RNA Routine 07/09/2020 2:48 PM LAUNDRY ROUTEMAN from Last 3 Months or Most Recently Relevant to Health Maintenance Results * HEPATITIS C ANTIBODY W/RFX TO HCV RNA (07/09/2020 2:48 PM LAUNDRY ROUTEMAN) HEPATITIS C AB NON-REACTI VE NON-REACT ROSITA [facility] SIGNAL TO CUTOFF 0.01 <[address] [facility] Comment: HCV antibody was non-reactive. There is no laboratory evidence of HCV infection. In most cases, no further action is required. However, if recent HCV exposure is suspected, a test for HCV RNA (test code 60450) is suggested. For additional information please refer to http://education.[employer] Interactive/faq/ERE10v6 (This link is being provided for informational/ educational purposes only.) 07/09/2020 2:48 PM LAUNDRY ROUTEMAN 07/09/2020 2:51 PM LAUNDRY ROUTEMAN Narrative [facility] - 07/14/2020 11:29 AM LAUNDRY ROUTEMAN FASTING:YES FASTING: YES Adriana ROSARIO LABORATORY Final Resul t [facility] [address] [place] [address] from Last 3 Months or Most Recently Relevant to Health Maintenance Insurance [employer] Care Teams Tenter Relationship Specialty Start Date End Date Adriana Sousa APNP [address] [place] [address] PCP - General NURSE PRACTITIONER 08/31/18
[2024-12-10] MEDS: LACTATED RINGERS 1,000 ML 999 ML IV CONT (23:15)
[2024-12-11] VITALS (12 sets, daily range): BP systolic 103–136; BP diastolic 53–73; PULSE 73–104; RESP 16–24; TEMP 36.2–37.2; O2SAT 98–100; BMI 28.8
--- NOTE | 2024-12-11 00:08 | ADMGEN ---
This patient, Jaky Lees, was admitted to Medical Room 344-01. Patient/family oriented to hospital policies and general routines including ID bracelet, bed and alarms, visiting hours, pain management, procedures, bathroom and other care routines, personal items, smoking policy, room service/diet, and visiting hours. Information on how to activate the Rapid Response Team has been discussed. Patient/Family are encouraged to report perceived risks to care and to ask questions if they do not understand what they are told or what they should do.
[2024-12-11] MEDS: LACTATED RINGERS 1,000 ML 125 ML IV CONT (00:56)
--- NOTE | 2024-12-11 02:24 | ED_ITS ---
HPI - Abdominal Pain General Chief Complaint: Abdominal Pain Stated Complaint: RLQ abd pain Time Seen by Provider: 12/10/24 22:18 History of Present Illness HPI narrative: Last night patient started noticing some pain to her right lower back, she also has not been feeling very hungry, and has been having nausea vomiting. She went to work through the pain and her son's piano recital, eventually the pain got much worse it with movement and was moving to the right lower quadrant so she came into the hospital. Has not really had anything to eat other than a few bites. Related Data Home Medications ?Medication ?Instructions ?Recorded ?Confirmed ?Last Taken ?Type No Home Medications 12/11/24 12/11/24 Unknown History Allergies Allergy/AdvReac Type Severity Reaction Status Date / Time No Known Allergies Allergy Unverified 12/10/24 21:30 Review of Systems 2 Review of Systems: All systems reviewed & are unremarkable except as noted in HPI and below PMFSH Family History Family History (Updated 12/11/24 @ 00:16 by Yudi Hayes RN) Other Adopted Unknown family medical history Social History Social History Smoking status: Current every day smoker Tobacco type: cigarettes Alcohol intake: current Substance use: never Substance use type: does not use Do You Feel Safe in your Home?: Yes Lack of Transportation: No Lack of Food: Never True Current Housing: I Have Housing Concerned About Future Housing: No Difficulty Paying Gas/Electric Bills: No Difficulty Paying for Meds: No Currently Unemployed: No Education: Bachelor's Degree Difficulty w/ Childcare or Family Care: No Spiritual care concerns: No Exam 2 Narrative: EXAMINATION OF ORGAN SYSTEMS/BODY AREAS: Constitutional: Vital signs per nursing GENERAL: Appears slightly uncomfortable HEAD: Normal with no signs of head trauma. EYES: EOMI, conjunctiva normal ENT: Hearing grossly intact LUNGS: Nonlabored breathing. HEART: [Regular rate and rhythm] ABD: [Soft], tender palpation right lower quadrant EXT: Normal range of motion SKIN: [No rashes or lesions.] NEURO: [Alert and oriented x 3. No gross focal sensory or strength deficits.] PSYCH: Normal affect Course Vital Signs Vital signs: Vital Signs Temperature 97 F L 12/10/24 21:31 Pulse Rate 112 H 12/10/24 21:31 Respiratory Rate 15 12/10/24 21:31 Blood Pressure 124/93 H 12/10/24 21:31 Pulse Oximetry 100 12/10/24 21:31 Oxygen Delivery Room Air 12/10/24 21:31 Temperature 97.7 F 12/11/24 00:11 Pulse Rate 104 H 12/11/24 00:11 Respiratory Rate 18 12/11/24 00:11 Blood Pressure 136/70 12/11/24 00:11 Pulse Oximetry 100 12/11/24 00:11 Oxygen Delivery Room Air 12/10/24 21:31 MDM - Abdominal Pain MDM Narrative Medical decision making narrative: Electronic medical record was reviewed. Patient presented to the ED with complaint of [abdominal pain and vomiting]. Vitals [were within acceptable limits]. Physical exam revealed tenderness to the right lower quadrant. Based on the patient's history and physical exam, my differential includes but is not limited to [gastritis, gastroenteritis, appendicitis, ovarian torsion, nephrolithiasis]. [IV access was established by nursing staff. Patient was given zofran, morphine]. CBC, BMP, lipase, LFTs, bilirubin and alk phos were obtained. Labs were pertinent for WBC 10.8. [Decision was made to obtain a CT-abdomen to evaluate for acute abdominal process which shows appendicitis.] D/w patient; d/w gen surg who will admit patient. Abx ordered. Lab Data 12/10/24 21:42 12/10/24 21:42 Labs: Lab Results 12/10/24 12/10/24 12/10/24 Range/Units 21:42 21:59 22:02 WBC 10.8 H (4.5-10.0) K/mm3 RBC 4.29 (4.2-5.4) M/mm3 Hgb 12.4 (12.0-15.0) g/dL Hct 39.0 (37.0-47.0) % MCV 90.9 (80-100) fl MCH 28.9 (26-34) pg MCHC 31.8 L (32-36) g/dl RDW 12.6 (11.5-14.5) % Plt Count 347 (150-375) k/mm3 MPV 9.6 (7.4-10.4) fl Immature Gran % (Auto) 0.5 (0-0.5) % Neut % (Auto) 74.1 H (45.5-73.1) % Lymph % (Auto) 19.0 (18.3-44.2) % [place] % (Auto) 5.2 (2.6-8.5) % Eos % (Auto) 0.8 (0-4.4) % Baso % (Auto) 0.4 (0.2-1.2) % Lymph # (Auto) 2.06 (0.9-3.2) K/mm3 [place] # (Auto) 0.6 (0.1-0.6) K/mm3 Eos # (Auto) 0.1 (0-0.3) K/mm3 Baso # (Auto) 0.0 (0.0-0.1) K/mm3 Abs Immat Gran (auto) 0.05 H (0.00-0.031) K/mm3 Absolute Neuts (auto) 8.0 H (1.3-6.7) K/mm3 Absolute Nucleated RBC 0.000 (0.0-0.012) K/mm3 Nucleated RBC % 0.0 (0.0-0.2) % Sodium 137 (137-145) mmol/L Potassium 3.4 (3.4-5.0) mmol/L Chloride 99 (98-107) mmol/L Carbon Dioxide 29 (22-30) mmol/L Anion Gap 9 (4-12) mmol/L BUN 10 (7-17) mg/dL Creatinine 0.64 L (0.7-1.0) mg/dL Estim Creat Clear Calc 93 ml/min Estimated GFR > 60 (59 - ) Glucose 119 H (65-110) mg/dL Calcium 9.3 (8.4-10.2) mg/dL Total Bilirubin 0.7 (0.2-1.3) mg/dL AST 19 (14-36) U/L ALT 14 (6-35) U/L Alkaline Phosphatase 75 (38-126) U/L Total Protein 8.0 (6.3-8.2) g/dL Albumin 4.6 (3.5-5.1) g/dL Lipase 68 (23-300) U/L Urine Color Dark yellow (Yellow) Urine Appearance Clear (Clear) Urine pH 5.5 (5.0-9.0) Ur Specific [place] 1.029 (1.001-1.035) Urine Protein Trace (Negative) mg/dL Urine Glucose (UA) Negative (Negative) mg/dL Urine Ketones 1+ H (Negative) mg/dL Ur Blood (Man) Negative (Negative) Urine Nitrate Negative (Negative) Urine Bilirubin Negative (Negative) Urine Urobilinogen 1.0 (<2.0) mg/dL Leukocyte Esterase Rfl Negative (Negative) CAT[place]INA/UL Urine RBC 3-5 H (0-2) /hpf Urine WBC 0-5 (0-3) /hpf Ur Squamous Epith Cells Moderate (Few) /hpf Urine Bacteria Rare /hpf Urine Casts 0-2 POC Urine HCG, Qual Negative (Negative) Imaging Data Radiologist's impression: ITS Impressions Abdomen/Pelvis CT 12/10/24 23:07 IMPRESSION: Acute appendicitis, as detailed above. Discharge Plan Discharge Clinical Impression: Acute appendicitis Patient Disposition: Still a Patient Condition: Stable
--- NOTE | 2024-12-11 10:45 | PM.IMHP ---
H&P: HPI History of Present Illness Date/Time: 12/11/24 10:45 Chief Complaint: Right lower quadrant abdominal pain Narrative: This is a 39-year-old woman who presented to the ED overnight with complaints of right lower quadrant abdominal pain. She reports her pain started 2 days ago. She had associated nausea, but no vomiting. No fever or chills. Her bowels were moving normally. Her pain was aggravated by bending and movement. No alleviating factors. She came into the ED last night for evaluation. Workup showed CT evidence of acute uncomplicated appendicitis. She was admitted in the setting. Review of Systems Review of Systems: All systems reviewed & are unremarkable except as noted in HPI and below PMFSH Past Medical History Medical History No pertinent past medical history Surgical History Surgical History No pertinent past surgical history Family History Family History Other Adopted Unknown family medical history Social History Social History Smoking status: Current every day smoker Tobacco type: cigarettes Alcohol intake: current Substance use: never Substance use type: does not use Do You Feel Safe in your Home?: Yes Lack of Transportation: No Lack of Food: Never True Current Housing: I Have Housing Concerned About Future Housing: No Difficulty Paying Gas/Electric Bills: No Difficulty Paying for Meds: No Currently Unemployed: No Education: Bachelor's Degree Difficulty w/ Childcare or Family Care: No Spiritual care concerns: No Meds Home Medications and Allergies Home Medications ?Medication ?Instructions ?Recorded ?Confirmed ?Type No Home Medications 12/11/24 12/11/24 History Allergies Allergy/AdvReac Type Severity Reaction Status Date / Time No Known Allergies Allergy Unverified 12/10/24 21:30 Vital Signs Vital Signs - 24 hr 12/10/24 21:31 12/10/24 22:18 12/10/24 22:31 Temperature 97 F L Pulse Rate 112 H 94 Respiratory Rate 15 16 Blood Pressure 124/93 H 114/59 L 111/63 Pulse Oximetry 100 97 100 Oxygen Delivery Room Air 12/11/24 00:11 12/11/24 05:57 Temperature 97.7 F 97.6 F Pulse Rate 104 H 99 Respiratory Rate 18 16 Blood Pressure 136/70 109/64 Pulse Oximetry 100 98 Oxygen Delivery Exam Const: General: comfortable and no acute distress Nutritional Appearance: average body habitus Orientation/consciousness: patient oriented x3 HENMT: Head: normocephalic and atraumatic Ears: hearing grossly normal bilaterally Mouth: Yes moist mucous membranes Eyes: General: appearance normal, both eyes and all related structures Pupils: Equal, round and reactive pupils present Neck: Neck: normal visual inspection and full ROM Resp: Effort & Inspection: no respiratory distress Auscultation: clear to auscultation bilaterally Cardio: Rate: regular rate Rhythm: regular rhythm Peripheral pulses: Peripheral pulses 2+ throughout GI: Inspection: non-distended and no scars GI Palp: Yes Soft to palpation, Yes Tenderness to palpation present (GI) (Right lower quadrant), No Guarding due to palpation present (GI), Yes No hepatosplenomegaly present, No Hernia present and No Rebound tenderness present Percussion: Yes normal to percussion Auscultation: normal bowel sounds Rectal Exam: deferred Skin: General skin exam: normal color Neuro: General: moves all extremities and no focal motor deficits Speech: normal speech Motor exam (neuro): 5/5 motor strength present throughout Extrem: General: normal to inspection and no edema Psych: Mental Status: mental status grossly normal Attitude: cooperative Insight: Good insight present (Psych) Judgement: Good judgement present (Psych) H&P: Results Labs Labs: Short CBC 12/10/24 Range/Units 21:42 WBC 10.8 H (4.5-10.0) K/mm3 Hgb 12.4 (12.0-15.0) g/dL Hct 39.0 (37.0-47.0) % Plt Count 347 (150-375) k/mm3 BMP 12/10/24 21:42 Sodium 137 Potassium 3.4 Chloride 99 Carbon Dioxide 29 BUN 10 Creatinine 0.64 L Glucose 119 H Calcium 9.3 Liver Function 12/10/24 Range/Units 21:42 Total Bilirubin 0.7 (0.2-1.3) mg/dL AST 19 (14-36) U/L ALT 14 (6-35) U/L Alkaline Phosphatase 75 (38-126) U/L Albumin 4.6 (3.5-5.1) g/dL Urine 12/10/24 Range/Units 21:59 Urine Color Dark yellow (Yellow) Urine Appearance Clear (Clear) Urine pH 5.5 (5.0-9.0) Ur Specific [place] 1.029 (1.001-1.035) Urine Protein Trace (Negative) mg/dL Urine Glucose (UA) Negative (Negative) mg/dL Imaging CT scan - abdomen: Radiologist's impression: ITS Impressions Abdomen/Pelvis CT 12/10/24 23:07 IMPRESSION: Acute appendicitis, as detailed above. Assessment and Plan Assessment and plan (1) Acute appendicitis: Code(s): K35.80 - Unspecified acute appendicitis Status: Acute Assessment and Plan: CT scan demonstrates evidence of acute appendicitis without perforation or abscess. This was discussed with the patient in detail. Will start her on IV Zosyn and continue IV fluids. We discussed both nonoperative treatment versus surgical management. We discussed the risks of recurrence or treatment failure with the option of antibiotic therapy. I also discussed the details of a laparoscopic appendectomy, possible open, under general anesthesia that would be done by Dr. Massey. Description of the procedure, risks, benefits, alternatives, and expected recovery were discussed. She wishes to proceed with surgery. Will proceed to the OR later today for laparoscopic appendectomy. Plan I have discussed the patient's case and plan of care with Dr. Massey.
[2024-12-11] MEDS: PIPERACILLN/TAZ 3.375GM/NS50ML 3.375 GM/50 ML BAG IVPB ×2 (13:09→18:10)
--- NOTE | 2024-12-11 14:58 | WPDHPUPDATE1 ---
History and Physical Update Update Date/Time: 12/11/24 14:58 History and Physical has been reviewed, including an updated exam of the patient. There are NO changes in the patient's condition. Risks, benefits, and alternatives have been discussed and questions answered. Patient agrees to proceed with procedure.
--- NOTE | 2024-12-11 15:35 | P.PNAN_ITS ---
Anes - Initial Pre Proc Eval Procedure: Operation Date: 12/11/24 15:00 Proposed Procedures p Laparoscopic Appendectomy - Chalo Massey DO Date/Time: 12/11/24 15:35 Surgeon: Chalo Massey DO Pre Op Diagnosis: appy Patient Data Age: 39 Gender: F Height: 1.57 m Weight: 71.6 kg Last Vital Signs Temp 36.4 C 12/11/24 05:57 Pulse 99 12/11/24 05:57 Resp 16 12/11/24 05:57 BP 109/64 12/11/24 05:57 Pulse Ox 98 12/11/24 05:57 O2 Del Method Room Air 12/10/24 21:31 Allergies Allergy/AdvReac Type Severity Reaction Status Date / Time No Known Allergies Allergy Unverified 12/11/24 14:25 Home Medications ?Medication ?Instructions ?Recorded ?Confirmed ?Type No Home Medications 12/11/24 12/11/24 History Laboratory Tests 12/10/24 12/10/24 12/10/24 21:42 21:59 22:02 WBC 10.8 H K/mm3 (4.5-10.0) RBC 4.29 M/mm3 (4.2-5.4) Hgb 12.4 g/dL (12.0-15.0) Hct 39.0 % (37.0-47.0) MCV 90.9 fl (80-100) MCH 28.9 pg (26-34) MCHC 31.8 L g/dl (32-36) RDW 12.6 % (11.5-14.5) Plt Count 347 k/mm3 (150-375) MPV 9.6 fl (7.4-10.4) Immature Gran % (Auto) 0.5 % (0-0.5) Neut % (Auto) 74.1 H % (45.5-73.1) Lymph % (Auto) 19.0 % (18.3-44.2) [place] % (Auto) 5.2 % (2.6-8.5) Eos % (Auto) 0.8 % (0-4.4) Baso % (Auto) 0.4 % (0.2-1.2) Lymph # (Auto) 2.06 K/mm3 (0.9-3.2) [place] # (Auto) 0.6 K/mm3 (0.1-0.6) Eos # (Auto) 0.1 K/mm3 (0-0.3) Baso # (Auto) 0.0 K/mm3 (0.0-0.1) Abs Immat Gran (auto) 0.05 H K/mm3 (0.00-0.031) Absolute Neuts (auto) 8.0 H K/mm3 (1.3-6.7) Absolute Nucleated RBC 0.000 K/mm3 (0.0-0.012) Nucleated RBC % 0.0 % (0.0-0.2) Sodium 137 mmol/L (137-145) Potassium 3.4 mmol/L (3.4-5.0) Chloride 99 mmol/L (98-107) Carbon Dioxide 29 mmol/L (22-30) Anion Gap 9 mmol/L (4-12) BUN 10 mg/dL (7-17) Creatinine 0.64 L mg/dL (0.7-1.0) Estim Creat Clear Calc 93 ml/min Estimated GFR > 60 (59 - ) Glucose 119 H mg/dL (65-110) Calcium 9.3 mg/dL (8.4-10.2) Total Bilirubin 0.7 mg/dL (0.2-1.3) AST 19 U/L (14-36) ALT 14 U/L (6-35) Alkaline Phosphatase 75 U/L (38-126) Total Protein 8.0 g/dL (6.3-8.2) Albumin 4.6 g/dL (3.5-5.1) Lipase 68 U/L (23-300) Urine Color Dark yellow (Yellow) Urine Appearance Clear (Clear) Urine pH 5.5 (5.0-9.0) Ur Specific [place] 1.029 (1.001-1.035) Urine Protein Trace mg/dL (Negative) Urine Glucose (UA) Negative mg/dL (Negative) Urine Ketones 1+ H mg/dL (Negative) Ur Blood (Man) Negative (Negative) Urine Nitrate Negative (Negative) Urine Bilirubin Negative (Negative) Urine Urobilinogen 1.0 mg/dL (<2.0) Leukocyte Esterase Rfl Negative [place]/UL (Negative) Urine RBC 3-5 H /hpf (0-2) Urine WBC 0-5 /hpf (0-3) Ur Squamous Epith Cells Moderate /hpf (Few) Urine Bacteria Rare /hpf Urine Casts 0-2 POC Urine HCG, Qual Negative (Negative) Patient hx anesthesia problems: none Family hx anesthesia problems: none Results Review: All pre-operative results and documents have been reviewed as part of the pre- operative evaluation. [facility] Past Medical History Medical History No pertinent past medical history Surgical History Surgical History No pertinent past surgical history Family History Family History Other Adopted Unknown family medical history Social History Social History Smoking status: Current every day smoker Tobacco type: cigarettes Alcohol intake: current Substance use: never Substance use type: does not use Do You Feel Safe in your Home?: Yes Lack of Transportation: No Lack of Food: Never True Current Housing: I Have Housing Concerned About Future Housing: No Difficulty Paying Gas/Electric Bills: No Difficulty Paying for Meds: No Currently Unemployed: No Education: Bachelor's Degree Difficulty w/ Childcare or Family Care: No Spiritual care concerns: No Anes - Eval Final PreProcedure Day of Procedure 12/11/24 15:35 Patient weight: overweight Heart: regular rate and rhythm Lungs: clear to auscultation Airway: Mallampati scale class 1 Neurological: alert and oriented Last oral intake: >/= 8 hours ASA classification: II Emergent: yes Anesthetic plan: proceed Anesthesia type and monitoring: general ETT and standard monitoring Results Review: All pre-operative results and documents have been reviewed as part of the pre- operative evaluation. Informed Consent: The patient's anesthetic plan and its attendant risks and benefits were discussed with the patient/family/POA. Questions were solicited and answers provided to the satisfaction of the patient/family/POA.
[2024-12-11] MEDS: BUPIVACAINE/EPINEPHRINE 0.5% 50 ML VIAL 20 ML INFILTRATE (16:04)
[2024-12-11] MEDS: LACTATED RINGERS 1,000 ML 30 ML IV CONT (16:26)
--- NOTE | 2024-12-11 16:26 | W.PM.PROC2 ---
Procedure Note - Detailed Date of Procedure 12/11/24 Pre-op Diagnosis Acute appendicitis Post-op Diagnosis Same Procedure Performed Laparoscopic appendectomy Surgeon Chalo aMssey, DO Anesthesia General and Local (0.5% bupivicaine with epinephrine) Indications This is a 39-year-old woman who presented to the emergency department overnight with right lower quadrant pain that started 2 days ago. She denied any fevers or chills. She had never had any symptoms like this in the past. In the emergency department she was noted to have an elevated white blood count at 10.8. A CT of her abdomen and pelvis showed evidence of acute appendicitis. She was placed in observation and started on IV antibiotics. Discussions with the patient about treatment options and decision was made to proceed with laparoscopic appendectomy, possible open. Findings Laparoscopic appendectomy was performed. The appendix appeared acutely inflamed and was slightly retrocecal. There was some inflammatory reaction of the reji cecal adipose tissue. I did not appear to be any evidence of perforation abscess. Base of the appendix appeared healthy and viable. The appendix was removed and sent to the lab for pathology. Description of Procedure Procedure as well as risks, benefits, and alternatives were explained to the patient. The patient agreed to proceed. Written consent was obtained and placed in chart prior to procedure. The patient was brought back to surgical suite. She was placed supine on operating table. Time-out was done to confirm the patient and procedure. The patient was then intubated by the Anesthesia Department. Her abdomen was prepped and draped in sterile fashion using chlorhexidine prep. A 5 mm incision was made just to the left of the patient's umbilicus and a 5 mm Optiview trocar was advanced through the abdominal layers under direct visualization. Once inside the peritoneal cavity, carbon dioxide insufflation was used to create a pneumoperitoneum. The camera was inserted and the abdomen was inspected. No immediate abnormalities were identified. The patient was then placed in slight Trendelenburg position and rotated to the left. A 5 mm incision was made in the suprapubic region in midline and a 5 mm trocar was inserted under direct visualization. A 12 mm incision was made in the left lower quadrant and a 12 mm trocar was inserted under direct visualization. The right lower quadrant was carefully inspected. The cecum was identified and then this was traced back to the appendix. The appendix was identified and grasped at the mesoappendix and lifted anteriorly. Careful blunt dissection was carried out at the base of the appendix through the mesoappendix using a [place] grasper. An Endo-THAI 45 mm blue load stapler was then advanced across the base of the appendix and clamped and fired. A white reload was then clamped across the mesoappendix and fired. This freed up our appendix completely. It was then placed in an EndoCatch bag and removed through the left lower quadrant port. The staple lines were then inspected. Hemostasis appeared adequate and the staple lines appeared secure. The area was then irrigated with sterile saline. The pelvis was then carefully inspected and irrigated with sterile saline as well and the remainder of the abdomen was carefully inspected. The patient was then flattened out in bed. One final inspection was made around the abdominal cavity and no other abnormalities were seen. The left lower quadrant port was removed and a Guerrero-Jordin cone was used to approximate the fascia with an 0 Vicryl simple interrupted suture. The remaining ports were then removed under direct visualization. The camera was removed and the pneumoperitoneum was released. 0.5% bupivacaine with epinephrine was infiltrated locally around each of the incisions. The skin of the incisions was then approximated using 4-0 Monocryl subcuticular suture and Exofin glue was applied on top. The patient was then awakened from anesthesia, extubated, and transferred to Recovery. Estimated Blood Loss 5 Urine Output 0 Pathology Yes (Appendix) Complications No immediate complications Condition Stable Disposition Floor [facility] Billing Surgery - Charge Forward: Surgery Billing
--- NOTE | 2024-12-11 16:28 | P.DS_ITS ---
DS: Admitting Diagnosis Discharge Date 12/11/2024 Admitting Diagnosis Acute appendicitis DS: Discharge Diagnosis Discharge Diagnosis (1) Acute appendicitis: Qualifiers: Acute appendicitis type: with localized peritonitis Appendicitis gangrene presence: without gangrene Appendicitis perforation presence: without perforation Appendicitis abscess presence: without abscess Qualified Code(s): K35.30 - Acute appendicitis with localized peritonitis, without perforation or gangrene Code(s): K35.80 - Unspecified acute appendicitis Status: Acute (2) Cecal diverticulitis: Code(s): K57.32 - Diverticulitis of large intestine without perforation or abscess without bleeding Status: Acute DS: Summary Hospital Course Reason for hospitalization: Acute appendicitis Hospital Course: This is a 39-year-old woman who presented to the emergency department with right lower quadrant pain that started 2 days prior. Her pain had progressed but she denied any fevers or chills. In the emergency department she was noted to have an elevated white blood count. CT showed evidence of acute appendicitis. She was then placed in observation and started on IV antibiotics. She underwent laparoscopic appendectomy on 12/11/2024. Surgery was uncomplicated and she was returned to the surgical floor postoperatively. At the time of surgery there was noted to be some induration around the cecum. The CT was then reviewed with Radiology and they did feel that there was signs of diverticulitis at the cecum which could also be causing the reactive inflammation of the appendix. Her diet and activity were advanced as tolerated. She was tolerating her diet and pain was adequately controlled. She remained hemodynamically stable and was tolera ting ambulation. She was discharged home on 12/11/2024 on a 10 day course of Augmentin and Flagyl. Status at Discharge Functional status at discharge: independent ambulation Overall status at discharge: patient is progressing back to baseline Time Spent with Patient Time attestation: Total time spent providing and/or coordinating discharge services: Time spent: Less than 30 minutes Exam Const: General: comfortable and no acute distress Orientation/consciousness: patient oriented x3 GI: Inspection: incision (intact with glue) DS: Data Data Completed and Pending Pending studies at discharge: Pending at discharge 12/11/24 16:08 Surgical [PTH] Routine Labs on day of discharge: Labs from last 24 hours 12/10/24 12/10/24 12/10/24 22:02 21:59 21:42 WBC 10.8 H RBC 4.29 Hgb 12.4 Hct 39.0 MCV 90.9 MCH 28.9 MCHC 31.8 L RDW 12.6 Plt Count 347 MPV 9.6 Immature Gran % (Auto) 0.5 Neut % (Auto) 74.1 H Lymph % (Auto) 19.0 [place] % (Auto) 5.2 Eos % (Auto) 0.8 Baso % (Auto) 0.4 Lymph # (Auto) 2.06 [place] # (Auto) 0.6 Eos # (Auto) 0.1 Baso # (Auto) 0.0 Abs Immat Gran (auto) 0.05 H Absolute Neuts (auto) 8.0 H Absolute Nucleated RBC 0.000 Nucleated RBC % 0.0 Sodium 137 Potassium 3.4 Chloride 99 Carbon Dioxide 29 Anion Gap 9 BUN 10 Creatinine 0.64 L Estim Creat Clear Calc 93 Estimated GFR > 60 Glucose 119 H Calcium 9.3 Total Bilirubin 0.7 AST 19 ALT 14 Alkaline Phosphatase 75 Total Protein 8.0 Albumin 4.6 Lipase 68 Urine Color Dark yellow Urine Appearance Clear Urine pH 5.5 Ur Specific [place] 1.029 Urine Protein Trace Urine Glucose (UA) Negative Urine Ketones 1+ H Ur Blood (Man) Negative Urine Nitrate Negative Urine Bilirubin Negative Urine Urobilinogen 1.0 Leukocyte Esterase Rfl Negative Urine RBC 3-5 H Urine WBC 0-5 Ur Squamous Epith Cells Moderate Urine Bacteria Rare Urine Casts 0-2 POC Urine HCG, Qual Negative Imaging Radiologist's impression: ITS Impressions Abdomen/Pelvis CT 12/10/24 23:07 IMPRESSION: Acute appendicitis, as detailed above. ADDENDUM: 12/11/24 1876 ADDENDUM: I was asked to review the study by Dr. Leyva to assess whether there is possibility of cecal diverticulitis. There is a diverticulum arising posteriorly from the cecum in close proximity to the retrocecal appendix. There is haziness to the immediately surrounding fat. Although the stranding does contact the normal sized appendix and acute appendicitis cannot be excluded, there are regions of the appendix which are relatively free from adjacent inflammatory stranding and would favor acute diverticulitis over acute appendicitis. Discharge Plan Discharge Attending physician on discharge: Chalo Leyva Consulting providers: Peggy Rodrigez; Brayan Burleson; Yudi Gayle Discharging Clinician: Chalo Leyva Anticipated Discharge Date/Time: 12/11/24 19:30 Patient Disposition: Home Activity: other - see discharge instructions Diet: regular Wound Care Instructions: other - see discharge instructions Discharge Instructions: DISCHARGE INSTRUCTION SHEET FOR HERNIA, GALLBLADDER AND APPENDIX SURGERIES DR. LEYVA PATIENT TO TAKE HOME 1. May shower in 24 hours, no soaking in bath x 2weeks. 2. Call office for: * Wound increasingly painful or bleeding * Vomiting * Fever of greater than 101 degrees 3. If no bowel movement for three days, take 1 oz. (30 ml) Milk of Magnesia or MiraLax 17g 1 to 2 times daily. 4. No heavy lifting > 10-15 pounds x weeks for hernia repairs and 2 weeks for laparoscopic cholecystectomy or appendectomy. 5. No driving for 3 days or while taking narcotic pain medications. 6. Ice to surgical site for 48 hours (30 min on, then 30 min off). 7. Up walking 10-30 minutes three times per day. 8. Resume previous home medications. 9. Follow-up 10-14 days in office for wound check or as previously scheduled. ([phone]) 10. Oral pain medications prescription to be sent to pharmacy. Take Tylenol 500mg every 6 hours and Ibuprofen 600mg every 6 hours for the first 2 days, then as needed. 11. NUTRITION: Start out by drinking fluids and increase your diet as tolerated. If you experience nausea, try dry toast, crackers, and 7-UP. If nausea or vomiting persists, contact your surgeon?s office. 12. Gallbladders-Low Fat Diet for 2 weeks (send care note of low fat diet) 13. Inguinal Hernias-wear scrotal support for 48 hours 14. Abdominal Hernias-if sent home with abdominal binder, wear for the first 2 weeks (may remove to shower or at night to sleep). Revised December 2018 Patient Instructions: Antibiotic Form, Opioid Safety (DC) Patient Language: Sinhala Stand Alone Forms: General Discharge Information Follow-up/Referrals: Chalo Leyva, [Physician] - 2 Weeks Discharge Medications: New hydrocodone-acetaminophen 5-325 mg tablet 1 tablet PO Q4H PRN (Reason: pain) Qty: 10 0RF amoxicillin-pot clavulanate 875-125 mg tablet 1 tablet PO Q12H 10 Days Qty: 20 0RF metronidazole 500 mg tablet 500 mg PO Q8H 10 Days Qty: 30 0RF Date of admission: 12/10/24 23:25 Primary Care Provider: Merry,Adriana Admitting Provider: Chalo Leyva Attending physician on admission: Chalo Leyva Condition: Stable
[2024-12-11] MEDS: LACTATED RINGERS 1,000 ML 100 ML IV CONT (18:11)
--- NOTE | 2024-12-11 19:47 | PC.NURSE ---
Pt is tolerating food and isnt in pain outside of some discomfort while standing. She ambulated around the room and stated she felt good and felt ok to go home.
--- NOTE | 2024-12-12 11:54 | PC.NURSE ---
called regarding discharge instructions. Informed him of making a follow up appt, watch for fevers and call if there are any concerns.
== END 2024-12-11 20:20 | disposition home or self-care (01) ==
LOC: ANHED 22:33 → ANH3MED 23:44
PROVIDERS: Admitting Provider Surgery; Emergency Provider Emergency Medicine; PCP Registered Nurse; Visit Provider Surgery
PROC: 0DTJ4ZZ Resection of Appendix, Percutaneous Endoscopic Approach (ICD-10-PCS; CPT 44970; principal; 2024-12-11 15:00)
DX: R10.31 Right lower quadrant pain (principal); K57.32 Diverticulitis of large intestine without perforation or abscess without bleeding; F17.210 Nicotine dependence, cigarettes, uncomplicated
CPT/HCPCS: 44970; 36415; 74177; 80053; 81001; 81025; 83690; 85025; 88304; 96361; 96365; 96367; 96375; 99285; G0378; J0330; J1100; J2405; J2543; J2704; J7030; J7120; Q9967

== ENCOUNTER 2024-12-22 07:47 | Observation (INO) | payer OTHER, SELFPAY ==
--- NOTE | ~2024-12-22 | CT_ITS ---
CT of the Abdomen and Pelvis: Indication: Abdominal pain, status post appendectomy 12/11/2024 Technique: 2.5 mm axial scans were obtained through the abdomen and pelvis following intravenous adm inistration of 100 cc of Omnipaque 350. Dose reduction technique was used on this scan by utilizing a utomated exposure control and iterative reconstruction technique. The dose-length product (DLP) was 4 63.09 mGy-cm. COMPARISON: 12/10/2024 Findings: Scans through the lung bases are unremarkable. The liver, spleen, pancreas, gallbladder, adrenals and kidneys are within normal limits. No evidence of aortic aneurysm. No lymphadenopathy. No bowel obstruction. No free air. There is a 1.8 x 1.7 cm probably abscess in the right lower quadra nt (axial image 94). Images through the pelvis were performed. Urinary bladder unremarkable. No adnexal mass seen. Small a mount of pelvic ascites present. Impression: Probable 1.8 x 1.7 cm abscess in the right lower quadrant with adjacent soft tissue infiltration or p hlegmon superiorly. No free air. No bowel obstruction. Reviewed, dictated and finalized at location . Impression: Probable 1.8 x 1.7 cm abscess in the right lower quadrant with adjacent soft ti ssue infiltration or phlegmon superiorly. No free air. No bowel obstruction.
--- OUTSIDE RECORDS SUMMARY | 2024-12-22 07:50 | XMS_ITS | Clinical Summary ---
Author Organization [facility] [employer] Address [address] [place] [address] Care Team Providers Care Medical Social Consultant Name Role Phone Unavailable Primary Care Provider Unavailabl e Source Comments [facility] [employer],non-owned Affiliates and Associated Physician Practices is amultiple site organization consisting of ambulatory clinics and hospital sitesin [place], [place], [place] and [place]. This disclosure is being madepursuant to the Care Everywhere program and may not contain all information available regarding this patient. Last updated 18.[facility] [employer] Allergies No known active allergies Medications * [...] patient's age to complete this topic Insurance [facility] Address: [facility] [id number] [place] [address] COMMERCIAL GENERIC SELF PAY NO INSURANCE Member Subscriber Plan / Payer (Ef fective for All Dates) Name:Niru Mcdaniel Member ID:Not on file Relation to Subscriber:Not on file Name:NIRU MCDANIEL Subscriber ID:Not on file (Home) Address: [address] [place] [address] [place] [address] Payer ID:Not on file Group ID:Not on file Type:Self Pay Address: [place], [place]
--- OUTSIDE RECORDS SUMMARY | 2024-12-22 07:50 | XMS_ITS | Encounter Summary ---
Author Organization [facility] Address [address] [place] [id number] Care Team Providers Care Claims Investigator Name Role Phone Adriana Sousa MARLENE Primary Care Provider [phone] Reason for Visit * Reason Comments CT (SCAN) Lab (SCAN) Encounter Details Date Type Department Care Team (Late st Contact Info) Description 12/10/2024 Scan [facility] Scanned, Doc Med Group CT (SCAN); Lab (SCAN) Social History Tobacco Use Types Packs/Day Years Used Date Smoking Tobacco: Every Day Cigarettes Smokeless Tobacco: Never Comments:2-3 cigs per day fo r the last 1 year Alcohol Use Standard [...] on file Sexual Orientation Not on file documented as of this encounter Plan of Treatment Not on file documented as of this encounter Procedures Procedure Name Priority Date/Time Associated Diagnosis Comments CT GENERIC 12/10/2024 OUTSIDE LAB (SCAN ORDER) 12/10/2024 documented in this encounter Results * OUTSIDE LAB (SCAN ORDER) (12/10/2024) 12/10/2024 [facility] Scanned SCANNING Final Resu lt * CT GENERIC (12/10/2024) Anatomical Region Laterality Modality Other 12/10/2024 [facility] Scanned SCANNING Final Resu lt documented in this encounter Visit Diagnoses Not on filedocumented in this encounter Additional Health Concerns Assessment Noted Time PHQ-9 Depression Total Score: 1 02/02/20 22 1:11 PM CDT documented as of this encounter Care Teams Claims Investigator Relationship Specialty Start Date End Date Adriana Sousa APNP [address] [place] [id number] PCP - General NURSE PRACTITIONER 08/31/18 documented as of this encounter
--- OUTSIDE RECORDS SUMMARY | 2024-12-22 07:50 | XMS_ITS | Data Portability ---
Author Organization [facility] [place] Address [address] [place] [address] Care Team Providers Care Strategy Analyst Name Role Phone ARACELI AGMBLE Primary Care Provider Assessment No assessment recorded. Plan of Treatment Reminders Order Date Submit Date Provider Last Modified By Organization Details Last Modified Time Details Appointments None recorded. Lab beta-HCG, qualitative , serum or plasma 2021 [facility] (Lab), [address], [place], [address], 04:17:35 CBC w/ auto diff 2021 [facility] (Lab), [address] [place], [address], 2 04:17:31 CMP, serum or plasma 2021 [facility] (Lab), [address] [place], [address], 2 04:17:32 HbA1c (hemoglobin A1c), blood 2021 [facility] (Lab), [address] [place], [address], 2 04:17:32 TSH, serum or plasma 2021 [facility] (Lab), [address] [place], [address], 04:17:33 prolactin, serum 2021 [facility] (Lab), [address], [place], [address], 2 04:17:33 FSH (follicle-s timulating hormone), serum 2021 [facility] (Lab), [address], [place], [address], 04:17:34 lh (luteinizin g hormone), serum 2021 [facility] (Lab), [address], [place], [address], 04:17:34 Referral None recorded. Procedures None recorded. Surgeries None recorded. Imaging US, pelvis [address], [facility] [address], [address], [place], [address], 21:38:29 US, transvagina l [address], [facility] [address], [address], [place], [address], 21:38:29 US, pelvis, complete 2021 [facility] [address], [address], [place], [address], 05:01:41 Medication Orders None recorded. Patient TargetsNo targets recorded. Patient InstructionsNo instructions recorded. Reason for Referral None Reported. Results Created Date Observation Date Name Description Value Unit Range Abnormal Flag Note LastModifiedBy Organization Detail LastModifiedTime 07/15/20 22 07/15/2022 CBC W/DIF F WBC 6.2 10'3/ uL 3.6-10 .2 Not Available [facility] (Lab) [address], [place], [address], 07/16/2022 04:17:31 07/15/20 22 07/15/2022 CBC W/DIF F RBC 4.25 10'6/ uL (based on docume nted legal sex) 4.10-5 .30 Not Available [facility] (Lab) [address], [place], [address], 07/16/2022 04:17:31 07/15/20 22 07/15/2022 CBC W/DIF F HGB 12.2 g/dL (based on docume nted legal sex) 11.9-1 5.8 Not Available [facility] (Lab) [address], [place], [address], 07/16/2022 04:17:31 07/15/20 22 07/15/2022 CBC W/DIF F HCT 38.4 % (based on docume nted legal sex) 37.4-4 8.3 Not Available [facility] (Lab) [address], [place], [address], 07/16/2022 04:17:31 07/15/20 22 07/15/2022 CBC W/DIF F MCV 90.4 fL 82.0-9 9.0 Not Available [facility] (Lab) [address], [place], [address], 07/16/2022 04:17:31 07/15/20 22 07/15/2022 CBC W/DIF F MCH 28.7 pg 27.0-3 3.0 Not Available [facility] (Lab) [address], [place], [address], 07/16/2022 04:17:31 07/15/20 22 07/15/2022 CBC W/DIF F MCHC 31.8 g/dL 32.0-3 6.0 low Not Available [facility] (Lab) [address], [place], [address], 07/16/2022 04:17:31 07/15/20 22 07/15/2022 CBC W/DIF F RDW 12.3 % 11.0-1 5.0 Not Available [facility] (Lab) [address], [place], [address], 07/16/2022 04:17:31 07/15/20 22 07/15/2022 CBC W/DIF F plt 332 10'3/ uL 150-45 0 Not Available [facility] (Lab) [address], [place], [address], 07/16/2022 04:17:31 07/15/20 22 07/15/2022 CBC W/DIF F MPV 10.7 fL 9.8-12 .7 Not Available [facility] (Lab) [address], [place], [address], 07/16/2022 04:17:31 07/15/20 22 07/15/2022 CBC W/DIF F NRBC's 0.0 % 0 Not Available [facility] (Lab) [address], [place], [address], 07/16/2022 04:17:31 07/15/20 22 07/15/2022 CBC W/DIF F absolute NRBCs 0.0 10'3/ uL 0 Not Available [facility] (Lab) [address], [place], [address], 07/16/2022 04:17:31 07/15/20 22 07/15/2022 CBC W/DIF F neutrophils 63.1 % 37.0-7 2.0 Not Available [facility] (Lab) [address], [place], [address], 07/16/2022 04:17:31 07/15/20 22 07/15/2022 CBC W/DIF F lymphocytes 30.3 % 16.0-4 8.0 Not Available [facility] (Lab) [address], [place], [address], 07/16/2022 04:17:31 07/15/20 22 07/15/2022 CBC W/DIF F monocytes 3.5 % 4.0-14 .0 low Not Available [facility] (Lab) [address], [place], [address], 07/16/2022 04:17:31 07/15/20 22 07/15/2022 CBC W/DIF F eosinophils 2.1 % 0.0-9. 0 Not Available [facility] (Lab) [address] [facility], [place], [address], 07/16/2022 04:17:31 07/15/20 22 07/15/2022 CBC W/DIF F basophils 0.8 % 0.0-2. 0 Not Available [facility] (Lab) [address] [facility], [place], [address], 07/16/2022 04:17:31 07/15/20 22 07/15/2022 CBC W/DIF F immature granulocytes 0.2 % no define d refere nce range Not Available [facility] (Lab) [address], [place], [address], 07/16/2022 04:17:31 07/15/20 22 07/15/2022 CBC W/DIF F absolute neutrophils 3.9 10'3/ uL 1.1-6. 0 Not Available [facility] (Lab) [address] [facility], [place], [address], 07/16/2022 04:17:31 07/15/20 22 07/15/2022 CBC W/DIF F absolute lymphocytes 1.9 10'3/ uL 0.7-3. 4 Not Available [facility] (Lab) [address] [facility], [place], [address], 07/16/2022 04:17:31 07/15/20 22 07/15/2022 CBC W/DIF F absolute monocytes 0.2 10'3/ uL 0.3-1. 0 low Not Available [facility] (Lab) [address] [facility], [place], [address], 07/16/2022 04:17:31 07/15/20 22 07/15/2022 CBC W/DIF F absolute eosinophils 0.1 10'3/ uL 0.0-0. 6 Not Available [facility] (Lab) [address] [facility], [place], [address], 07/16/2022 04:17:31 07/15/20 22 07/15/2022 CBC W/DIF F absolute basophils 0.1 10'3/ uL 0.0-0. 1 Not Available [facility] (Lab) [address] [facility], [place], [address], 07/16/2022 04:17:31 07/15/20 22 07/15/2022 CBC W/DIF [...] resul ts are expec kim. Not Available [facility] (Lab) [address] [facility], [place], [address], 07/16/2022 04:17:31 07/15/20 22 07/15/2022 HEMOG LOBIN [...] >8.0% Actio n sugge sted Not Available [facility] (Lab) [address] [facility], [place], [address], 07/16/2022 04:17:32 07/15/20 22 07/15/2022 CMP(C OMPRE HENSI VE METAB OLIC PANEL ) sodium 139 mmol/ L 133-14 6 Not Available [facility] (Lab) [address] [facility], [place], [address], 07/16/2022 04:17:32 07/15/20 22 07/15/2022 CMP(C OMPRE HENSI VE METAB OLIC PANEL ) potassium 3.7 mmol/ L 3.5-5. 1 Not Available [facility] (Lab) [address] [facility], [place], [address], 07/16/2022 04:17:32 07/15/20 22 07/15/2022 CMP(C OMPRE HENSI VE METAB OLIC PANEL ) chloride 103 mmol/ L 98-107 Not Available [facility] (Lab) [address] [facility], [place], [address], 07/16/2022 04:17:32 07/15/20 22 07/15/2022 CMP(C OMPRE HENSI VE METAB OLIC PANEL ) carbon dioxide 28 mmol/ L 21-31 Not Available [facility] (Lab) [address] [facility], [place], [address], 07/16/2022 04:17:32 07/15/20 22 07/15/2022 CMP(C OMPRE HENSI VE METAB OLIC PANEL ) anion gap 8 mmol/ L 4-13 Not Available [facility] (Lab) [address] [facility], [place], [address], 07/16/2022 04:17:32 07/15/20 22 07/15/2022 CMP(C OMPRE HENSI VE METAB OLIC PANEL ) blood urea nitrogen 11 mg/dL 7-25 Not Available [facility] (Lab) [address] [facility], [place], [address], 07/16/2022 04:17:32 07/15/20 22 07/15/2022 CMP(C OMPRE HENSI VE METAB OLIC PANEL ) creatinine 0.82 mg/dL 0.60-1 .30 Not Available [facility] (Lab) [address], [place], [address], 07/16/2022 04:17:32 07/15/20 22 07/15/2022 CMP(C OMPRE HENSI VE METAB OLIC PANEL ) egfrcr (CKD-epi 2020) >90 mL/mi n/1.7 3_m2 >=60 Not Available [facility] (Lab) [address], [place], [address], 07/16/2022 04:17:32 07/15/20 22 07/15/2022 CMP(C OMPRE HENSI VE METAB OLIC PANEL ) calcium 9.4 mg/dL 8.3-10 .5 Not Available [facility] (Lab) [address], [place], [address], 07/16/2022 04:17:32 07/15/20 22 07/15/2022 CMP(C OMPRE HENSI VE METAB OLIC PANEL ) glucose 107 mg/dL 70-100 high Not Available [facility] (Lab) [address], [place], [address], 07/16/2022 04:17:32 07/15/20 22 07/15/2022 CMP(C OMPRE HENSI VE METAB OLIC PANEL ) protein, total 6.9 g/dL 6.4-8. 3 Not Available [facility] (Lab) [address], [place], [address], 07/16/2022 04:17:32 07/15/20 22 07/15/2022 CMP(C OMPRE HENSI VE METAB OLIC PANEL ) albumin 4.3 g/dL 3.5-5. 0 Not Available [facility] (Lab) [address], [place], [address], 07/16/2022 04:17:32 07/15/20 22 07/15/2022 CMP(C OMPRE HENSI VE METAB OLIC PANEL ) ALT 11 units /L 9-43 Not Available [facility] (Lab) [address] [facility], [place], [address], 07/16/2022 04:17:32 07/15/20 22 07/15/2022 CMP(C OMPRE HENSI VE METAB OLIC PANEL ) alkaline phosphatase 60 units /L 34-104 Not Available [facility] (Lab) [address] [facility], [place], [address], 07/16/2022 04:17:32 07/15/20 22 07/15/2022 CMP(C OMPRE HENSI VE METAB OLIC PANEL ) AST 16 units /L 13-39 Not Available [facility] (Lab) [address] [facility], [place], [address], 07/16/2022 04:17:32 07/15/20 22 07/15/2022 CMP(C OMPRE HENSI VE METAB OLIC PANEL ) bilirubin, total 0.6 mg/dL 0.2-1. 2 Not Available [facility] (Lab) [address] [place], [address], 07/16/2022 04:17:32 07/15/20 22 07/15/2022 TSH, REFLE X FREE T4 TSH 1.19 uIU/m L 0.30-5 .33 Not Available [facility] (Lab) [address] [facility], [place], [address], 07/16/2022 04:17:33 07/15/20 22 07/15/2022 PROLA CTIN prolactin, total 11.00 NG/mL 4.79-2 3.30 This assay was perfo rmed using [employer] n reage nts and test kits. Value s obtai tunde with other assay metho ds or kits canno t be used inter najera eably . Not Available [facility] (Lab) [address] [place] [facility] [place], [address], 07/16/2022 04:17:33 07/15/20 22 07/15/2022 LH (LUTE [...] use: 7.7-5 8.5 mIU/m L Not Available [facility] (Lab) [address] [facility], [place], [address], 07/16/2022 04:17:34 07/15/20 22 07/15/2022 FSH FSH 7.2 mIU/m L This assay was perfo rmed using [employer] reage nts and test kits. Value s obtai tunde with other assay metho ds or kits canno t be used inter [facility] eay . Femal es Folli cular : 3.5-1 2.5 mIU/m L Ovula tion: 4.7-2 1.5 mIU/m L Lutea l: 1.7-7 .7 mIU/m L Postm enopa use: 25.8- 134.8 mIU/m L Not Available [facility] (Lab) [address] [place], [address], 07/16/2022 04:17:34 07/15/20 22 07/15/2022 HCG(H UMAN CHORI ONIC GONAD OTROP IN),Q UAL SERUM , REFLE X QUANT ITATI VE bhcg, qualitative, blood Negati ve negati ve Not Available [facility] (Lab) [address] , [place], [address], 07/16/2022 04:17:34 07/19/20 22 07/19/2022 US, pelvi s No observ ation record ed. [email or web address] [place] [address], [place], [address], 07/19/2022 16:34:47 07/19/20 22 07/19/2022 US, trans vagin al No observ ation record ed. [email or web address] [place] [address], [place], [address], 07/19/2022 16:34:37 07/19/20 22 07/19/2022 US, pelvi s No observ ation record ed. [email or web address] [facility] [address], [place], [address], 07/27/2022 12:20:36 Result Notes None recorded. Problems Name Problem SNOMED Code Status Onset Date Resolution Date Notes Provider Name and Address Organization Details Recorded Time Placenta previa with hemorrhag e - not delivered 652886957 Active 2013 Hemorrhag e from placenta previa, antepartu m;Practic e ID: 0001 Not Available [facility] 0 21:48:40 Routine care Active 2013 Supervisi on of other normal ;Practice ID: 0001 Not Available [facility] 0 21:48:40 Delivery normal 33988168 Active 2013 Normal delivery; Practice ID: 0001 Not Available [facility] 0 21:48:41 Single live from alvarez 390927621 Active 2013 Mother with single liveborn; Practice [...] Available [facility] 0 21:48:41 Secondary amenorrhe a 725990230 Active 2015 Secondary amenorrhe a;Practic e ID: 0001 Not Available [facility] 0 21:48:41 Nausea and vomiting 49305581 Active 2015 Nausea with vomiting, unspecifi ed;Practi ce ID: 0001 Not Available [facility] 0 21:48:41 detection examinati on Active 2015 Encounter for test, result positive; Practice ID: 0001 [facility] Available [facility] 0 21:48:41 Normal in multigrav rosy 36970614607 4106 Active 2015 Encounter for suprvsn of normal , first trimester ;Practice ID: 0001 Not Available [facility] 0 21:48:42 Term delivered 97759704 Active 2015 Encounter for full-term uncomplic ated delivery; Practice ID: 0001 Not Available [facility] 0 21:48:43 Gestation period, 37 weeks 20462625 Active 2015 37 weeks gestation of ;Practice ID: 0001 Not Available [facility] 0 21:48:43 Lochia finding Active 2015 Encounter for routine postpartu m follow-up ;Practice ID: 0001 [facility] Available [facility] 0 21:[facility]:[address] Concept Active 2017 Encntr for visual basic developer exam (general) (routine) w/o abn findings; Practice ID: 0001 Not Available [facility] 0 21:48:43 Lump of axillary tail of right breast 52643427740 4106 Active 2017 Unspecifi ed lump in axillary tail of the right breast;Pr actice ID: 0001 Not Available [facility] 0 21:48:43 Body mass index 25-29 - overweigh t 930049780 Active 2017 Body mass index (BMI) 27.0-27.9 , adult;Rec orded Elsewhere : No Locati on: [facility] So urce: EHR Chron ic: N Practic e ID: 0001 Bill able Time: 04:45:00 PM Not Available [facility] 0 21:48:44 Ultrasono graphy Active 2013 screening for malformat ion using ultrasoni cs;Practi ce ID: 0001 Not Available [facility] 0 21:48:45 screening Active 2013 screening for malformat ion using ultrasoni cs;Practi ce ID: 0001 Not Available [facility] 0 21:48:45 Congenita l malformat ion 622541118 Active 2013 screening for malformat ion using ultrasoni cs;Practi ce ID: 0001 Not Available [facility] 0 21:48:45 Atypical squamous cells of undetermi tunde significa nce on cervical Papanicol aou smear 131636317 Active 2014 Papanicol aou smear of cervix with atypical squamous cells of undetermi tunde significa nce (ASC-US); Recorded Elsewhere : No Locati on: [facility] So urce: EHR Chron ic: N Practic e ID: 0001 Bill able Time: 12:30:00 PM Not Available [facility] 0 21:48:47 Breast lump 59959113 Active 2017 Unspecifi ed lump in unspecifi ed breast;Re corded Elsewhere : No Locati on: [facility] So urce: EHR Chron ic: N Practic e ID: 0001 Bill able Time: 11:00:00 AM Not Available [facility] 0 21:48:47 Notes:Encounter for antenata l screening of mother Recorded Elsewhere: No Location: [facility] Source: EHR Chronic: N Practice ID: 0001 Billable Time: 08:30:00 AM Encounter for screening of mother Practice ID: 0001 Encounter for screening of mother Recorded Elsewhere: No Location: [facility] Source: EHR Chronic: N Practice ID: 0001 Billable Time: 11:00:00 AM Encounter for screening of mother Practice ID: 0001 Problem Notes None recorded. Procedures Surgical History Date Name Laterality Status Provider Name and Address Organization Details Recorded Time 0 Date of Last Pap Smear completed Nicole Smith [facility] 07/15/2022 15:17:34 Imaging Results Imaging Date Name Status LastModified by Organization Details LastModified Time 07/19/2022 US, pelvis completed [email or web address] [place] [address], [place], [address], 07/19/2022 16:34:47 07/19/2022 US, transvaginal completed [email or web address] [facility] [address], [place], [address], 07/19/2022 16:34:37 07/19/2022 US, pelvis completed [email or web address] [facility] [address], [place], [address], 07/27/2022 12:20:36 Procedure Notes None recorded. Medical Equipment None Reported. Allergies No known drug allergies Medications Name Sig Start Date Stop Date Status Note LastModified by Organization Details LastModified Time Reglan 10 mg tablet take 1 tablet by oral route 4 times every day 30 minutes before meals and at bedtime 05/02 completed Psychiatric ed Elsewher e: No Locat ion: [facility] odify By: vijay Putnam r DateTime : 09/04/19 16 10:30:00 AM Not Available Not Available Not Available Vitamin D2 1,250 mcg (50,000 unit) capsule take 1 capsule by oral route every week 05/02 completed Prescrib ed Elsewher e: No Locat ion: [facility] odify By: vijay Putnam r DateTime : 10/20/19 16 03:40:34 PM Not Available Not Available Not Available One Daily 27 mg iron-800 mcg tablet take 1 tablet by oral route every day 05/02 completed Prescrib ed Elsewher e: Yes Loca tion: [facility] odify By: vijay Putnam r DateTime : 03/05/20 14 01:45:00 PM Not Available Not Available Not Available Vitals Date Recorded Body height Body mass index (BMI) Body weight Systolic blood pressure Diastolic blood pressure Provider Name and Address Organization Details Last Updated DateTime 07/15/2022 157.48 cm 27.9 kg/m2 85081.91 g 112 mm[Hg] 64 mm[Hg] Nicole Mcmahanzoe [facility] 15:17:10 Social History Question Answer Notes LastModified by Organizat ion Details LastModified Time Tobacco Smoking Status Current Every Day Smoker Nicolesmita Mcmahanzoe null, [facility] 07/15/2022 15:20:34 Are You Blind Or Do You Have Difficulty Seeing? No Information not available 07/15/2022 Are You Deaf Or Do You Have Serious Difficulty Hearing? No Information not available 07/15/2022 What Type Of Diet Are You Following? REGULAR Information not available 07/15/2022 Do You Have Difficulty Walking Or Climbing Stairs? No Information not available 07/15/2022 Sex: Unknown Functional Status Question Answer Note LastModified by [id number] Details LastModified Time What is your level of alcohol consumption? Occasional Information not available 07/15/2022 Are you able [...] SNOMED-CT Code Diagnosis ICD10 Code Diagnosis Note [id number] Natasha Lockwood [facility] [address] [address] 07/15/2022 14:57:33 07/19/2022 15:11:17 Irregular periods 18411279 N92.6 Update TVUSUpdate LabsMenstr ual diary recommende [...] counseling and review of plan of care. [id number] Sami Khalil MD [place] [address] [address] 07/19/2022 15:28:08 07/19/2022 16:15:20 Irregular periods 75383143 N92.6 Health Concerns Section Related Observation LastModified by Organization Detai ls LastModified Time None Recorded Concern Status LastModified by Organization Details LastModified Time None Recorded Advance Directives Directive None Recorded Payers Encounter Date Sequence Insurance Name Policy Number Policy Christianson Covered Member ID Christianson Member ID Guarantor Name 07/15/2022 1 [place] [id number] Amari Lees [id number] Jaky Lees 07/19/2022 1 [place] [id number] Amari Lees [id number] Jakygonzalez Lees Notes Date Note Type Note Provider Name and Address Organization Details Recorded Time 07/15/2022 text/html Irregular PeriodsReported bypatient.Onset/Flo ng:past 2 cycles Quality:moderate Duration:7 days/month; 7-10 days/month Severity:moderate Associated Symptoms:fatigue Cycle length is starting to vary and flow is changing. JAEL Holt- [address], [place], [address], [facility] 07/18/2022 09:24:38 OBGyn Episode Ob Episode Information Episode Created Date Number of Fetuses Patient Bloodtype Patient rh Status Prepregnancy Weight lbs Domestic Partner Domestic Partner Phone Father Name Cardiology Physician Assistant Status 07/15/20 22 1 CLOSED Fetus Data First Name Last Name Admitted to NICU Weight (g) Sex Living Outcome Pediatric Complications Fetus ID Race Codes Race Delivery Type 2891.64 9 M Full Term [address] Vaginal Delivery Trung Calculation Initial Trung Date [...] Domestic Partner Domestic Partner Phone Father Name Cardiology Physician Assistant Status 07/15/20 22 1 CLOSED Fetus Data First Name Last Name Admitted to NICU Weight (g) Sex Living Outcome Pediatric Complications Fetus ID Race Codes Race Delivery Type 2721.55 2 F Full Term 66009 Vaginal Delivery Trung Calculation Initial Trung Date [...] Domestic Partner Domestic Partner Phone Father Name Cardiology Physician Assistant Status 07/15/20 22 1 CLOSED Fetus Data First Name Last Name Admitted to NICU Weight (g) Sex Living Outcome Pediatric Complications Fetus ID Race Codes Race Delivery Type 2721.55 2 F Full Term [id number] Vaginal Delivery Trung Calculation Initial Trung Date [...]
--- OUTSIDE RECORDS SUMMARY | 2024-12-22 07:50 | XMS_ITS | Clinical Summary ---
Author Organization [facility] Address [address] [place] [id number] Care Team Providers Care Rehab Specialist Name Role Phone Adriana Sousa MARLENE Primary Care Provider [phone] Allergies No known active allergies Medications Vitamin D, Ergocalciferol, 11294 units CapIndications: Vitamin D deficiency Take 1 capsule by mouth once a week. 12 capsule 12/22/2022 Active Active Problems Problem Noted Date Diagnosed Date Vitamin D deficiency 08/31/2018 Resolved Problems Problem Noted Date Diagnosed Date Resolved Date BMI 27.0-27.9,adult 08/31/2018 12/07/19 23 Encounters Date Type Department Care Team Description 12/11/2024 Scan [facility] Scanned, [facility] Pathology (SCAN); Procedure (SCAN); CT (SCAN) 12/10/2024 Scan [facility] Scanned, Doc Med Group CT (SCAN); Lab (SCAN) from Last 3 Months Family History * Patient is adopted Medical [...] 2017 Annual Physical 12/07/2023 12/06/2022 COVID-19 Vaccine (1 - 2023-2 5 season) 2024 PHQ-2 (Physician Belkofski) 08/07/2024 DTaP, Tdap and Td Vaccines ( 2 [...] Procedure Name Priority Date/Time Associated Diagnosis Comments PATHOLOGY GENERIC (SCAN ORDER) 12/11/2024 CT GENERIC 12/11/2024 PROCEDURE GENERIC (SCAN ORDER) 12/11/2024 CT GENERIC 12/10/2024 OUTSIDE LAB (SCAN ORDER) 12/10/2024 HEPATITIS C ANTIBODY W/RFX TO HCV RNA Routine 07/09/2020 2:48 PM MORNING SHOW [employer] from Last 3 Months or Most Recently Relevant to Health Maintenance Results * CT GENERIC (12/11/2024) Only the most recent of2 resultswithin the time period is included. Anatomical Region Laterality Modality Other 12/11/2024 [facility] Scanned SCANNING Final Resu lt * PATHOLOGY GENERIC (SCAN ORDER) (12/11/2024) 12/11/2024 [facility] Scanned SCANNING Final Resu lt * PROCEDURE GENERIC (SCAN ORDER) (12/11/2024) 12/11/2024 Result [facility] Scanned SCANNING Final Resu lt * OUTSIDE LAB (SCAN ORDER) (12/10/2024) 12/10/2024 Result [facility] Scanned SCANNING Final Resu lt * HEPATITIS C ANTIBODY W/RFX TO HCV RNA (07/09/2020 2:48 PM MORNING SHOW [employer]) HEPATITIS C AB NON-REACTI VE NON-REACT ROSITA [facility] SIGNAL TO CUTOFF 0.01 <1.[address] [facility] Comment: HCV antibody was non-reactive. There is no laboratory evidence of HCV infection. In most cases, no further action is required. However, if recent HCV exposure is suspected, a test for HCV RNA (test code 23713) is suggested. For additional information please refer to http://education.[employer].VANDOLAY/faq/PKE57v4 (This link is being provided for informational/ educational purposes only.) 07/09/2020 2:48 PM MORNING SHOW [employer] 07/09/2020 2:51 PM MORNING SHOW [employer] PRODUCER Narrative [facility] - 07/14/2020 11:29 AM MORNING SHOW [employer] PR[employer] FASTING:YES FASTING: YES Adriana [facility] Final Resul t [facility] [id number] [place] [id number] from Last 3 Months or Most Recently Relevant to Health Maintenance Insurance [employer] Care Teams Rehab Specialist Relationship Specialty Start Date End Date Adriana Sousa APNP [address] [place] [id number] PCP - General NURSE PRACTITIONER 08/31/18
--- OUTSIDE RECORDS SUMMARY | 2024-12-22 07:50 | XMS_ITS | Encounter Summary ---
Author Organization [facility] Address [address] [place] [id number] Care Team Providers Care Hemstitching Machine Operator Name Role Phone Adriana Sousa Rao ROSARIO Primary Care Provider [phone] Reason for Visit * Reason Comments Pathology (SCAN) Procedure (SCAN) CT (SCAN) Encounter Details Date Type Department Care Team ([facility] Contact Info) Description 12/11/2024 Scan [facility] Scanned, Doc [facility] Pathology (SCAN); Procedure (SCAN); CT (SCAN) Social History Tobacco Use Types Packs/Day [...] Priority Date/Time Associated Diagnosis Comments CT GENERIC 12/11/2024 PATHOLOGY GENERIC (SCAN ORDER) 12/11/2024 PROCEDURE GENERIC (SCAN ORDER) 12/11/2024 documented in this encounter Results * PATHOLOGY GENERIC (SCAN ORDER) (12/11/2024) 12/11/2024 [facility] Scanned SCANNING Final Resu lt * PROCEDURE GENERIC (SCAN ORDER) (12/11/2024) 12/11/2024 [facility] Scanned SCANNING Final Resu lt * CT GENERIC (12/11/2024) Anatomical Region Laterality Modality Other 12/11/2024 Result [facility] Scanned SCANNING Final Resu lt documented in this encounter Visit Diagnoses Not on filedocumented in this encounter Additional Health Concerns Assessment Noted Time PHQ-9 Depression Total Score: 1 02/02/20 22 1:11 PM CDT documented as of this encounter Care Teams Hemstitching Machine Operator Relationship Specialty Start Date End Date Adriana Sousa APNP [address] [place] [id number] PCP - General NURSE PRACTITIONER 08/31/18 documented as of this encounter
[2024-12-22 07:53] VITALS: BP 120/83; PULSE 94; RESP 20; TEMP 36.9; O2SAT 100
[2024-12-22 08:00] VITALS: RESP 18; O2SAT 100
[2024-12-22 08:36] LABS: BEDSIDEPREGUCG Negative (Negative)
[2024-12-22 08:47] LABS: Add Urine Microscopic? YES; Appearance Urine Clear (Clear); Bacteria Urine None Seen /hpf; Bilirubin Urine Negative (Negative); Blood Urine Negative (Negative); Color Urine Yellow (Yellow); Glucose Urine UA Negative (Negative); Ketones Urine Negative (Negative); Leukocyte Esterase Ur 1+ LEU/UL (Negative); Need Manual Microscopic Reviewed; Nitrate Urine Negative (Negative); Non Pathogenic Casts 0-2; Protein Urine Negative (Negative); RBC Urine 0-2 /hpf (0-2); Squamous Epithelial Cell Urine None Seen /hpf (Few); Urobilinogen Urine 0.2 mg/dL (<2.0); WBC Urine 0-5 /hpf (0-3); pH Urine 5.5 (5.0-9.0)
--- NOTE | 2024-12-22 08:59 | ED.ABDPAIN ---
HPI - Abdominal Pain General Chief Complaint: Recheck/Abnormal Lab/Rx Stated Complaint: RLQ PAIN, HX APPY 12/11/2024 Time Seen by Provider: 12/22/24 07:58 Source: patient Mode of arrival: ambulatory Limitations: no limitations History of Present Illness HPI narrative: Patient presents with right lower quadrant pain. She is status post appendectomy performed 12/11/[address] Massey. No fevers. Patient does not believe she has been chills although she does note that the air conditioning runs low temperature in her house. Her last bowel movement was today. She had diarrhea last week and had attributed that to being on 2 antibiotics but this then resolved. She denies any constipation bloody stool. She had been prescribed opiates but denies taking them and had taken [id number] Tylenol ibuprofen for the 1st 3 days and then stopped. Her pain has otherwise been well controlled since until it started again the past 24 hours in which she noted that this area was tender to the touch and she would have pain when she walked or moved in a certain position. Her last menstrual period started 12/20/2024 and has otherwise been normal in terms of flow other than the fact that it was a few days late. She denies any nausea, vomiting, or additional vaginal discharge. States she was placed on 2 antibiotics because she has been told that inflammation was noted around her appendix. Related Data Allergies Allergy/AdvReac Type Severity Reaction Status Date / Time No Known Allergies Allergy Verified 12/22/24 07:48 [facility] Past Medical History Medical History No pertinent past medical history Surgical History Surgical History S/P appendectomy 12/11/2024; Dr Massey Family History Family History Other Adopted Unknown family medical history Social History Social History Smoking status: Current every day smoker Alcohol intake: current Substance use: never Substance use type: does not use Do You Feel Safe in your Home?: Yes Lack of Transportation: No Lack of Food: Never True Current Housing: I Have Housing Concerned About Future Housing: No Difficulty Paying Gas/Electric Bills: No Difficulty Paying for Meds: No Currently Unemployed: No Education: Bachelor's Degree Difficulty w/ Childcare or Family Care: No Spiritual care concerns: No Exam Narrative: GENERAL: Well-appearing, well-nourished, and in no acute distress. HEAD: Normocephalic, atraumatic. EYES: Non injected, non icteric ENT: Nares clear, no rhinorrhea or epistaxis. NECK: Supple. CHEST: Speaking in full sentences. No respiratory distress. HEART: Regular rate and rhythm. . ABDOMEN: Soft, nondistended. Mild localized peritonitis in the right lower quadrant but not distinctly at [place] point. No rigidity or guarding. Patient is not peritoneal. EXTREMITIES: Normal range of motion. No lower extremity edema. SKIN: Warm, dry. Surgical sites clean intact healing well without surrounding erythema induration or purulent discharge NEURO: No focal deficits. Alert and oriented x3. PSYCH: Normal mood and affect. Course Vital Signs Vital signs: Vital Signs Temperature 98.5 F 12/22/24 07:53 Pulse Rate 94 12/22/24 07:53 Respiratory Rate 20 12/22/24 07:53 Blood Pressure 120/83 12/22/24 07:53 Pulse Oximetry 100 12/22/24 07:53 Oxygen Delivery Room Air 12/22/24 07:53 Temperature 98.1 F 12/22/24 13:08 Pulse Rate 66 12/22/24 13:08 Respiratory Rate 18 12/22/24 13:08 Blood Pressure 111/84 12/22/24 13:08 Pulse Oximetry 100 12/22/24 13:08 Oxygen Delivery Room Air 12/22/24 07:53 MDM - Abdominal Pain MDM Narrative Medical decision making narrative: Patient presents with right lower quadrant abdominal pain. She is postop day 11 appendectomy and had been recovering appropriately with pain well controlled over the past 1+ week until it recurred in the past 24 hours. In the emergency department they are afebrile with vital signs within normal limits. Urinalysis with 1+ leukocyte esterase but otherwise unremarkable with no other signs of infection. test negative. No leukocytosis or anemia. She does have a mild thrombocytosis which is new from previous, likely acute phase/stress reactant. Discussed with Dr. Sanabria, general surgeon. Patient has already been on Augmentin and Flagyl postoperatively due to intraoperative findings per her. Dr. Sanabria notes that her pathology report was normal. Given she has already been on antibiotic coverage outpatient, he does therefore recommend admitting under patient's initial surgeon Dr. Massey who will be in tomorrow but Dr Sanabria will come evaluate the patient and discuss the plan. Recommends Zosyn for antibiotics and blood cultures are ordered as well. Patient is updated at bedside in verifies understanding and is in agreement. She has remained hemodynamically stable. Differential Diagnosis Differential diagnosis: Likely abdominal pain and other (Postoperative complication including abscess; considered /ectopic , ovarian cyst, PID, torsion, TOA) Medical Records Attestation: I reviewed the patient's medical records. Medical records narrative: Pathology report from appendix: Benign appendiceal tissue. - No evidence of appendicitis Lab Data Attestation: I reviewed the patient's lab results. Lab results narrative: Chemistry normal 12/22/24 09:10 12/22/24 09:10 Labs: Lab Results 12/22/24 12/22/24 12/22/24 Range/Units 08:28 08:35 09:10 WBC 8.1 (4.5-10.0) K/mm3 RBC 4.23 (4.2-5.4) M/mm3 Hgb 12.4 (12.0-15.0) g/dL Hct 38.6 (37.0-47.0) % MCV 91.3 (80-100) fl MCH 29.3 (26-34) pg MCHC 32.1 (32-36) g/dl RDW 13.2 (11.5-14.5) % Plt Count 427 H (150-375) k/mm3 MPV 9.2 (7.4-10.4) fl Immature Gran % (Auto) 0.4 (0-0.5) % Neut % (Auto) 69.4 (45.5-73.1) % Lymph % (Auto) 20.1 (18.3-44.2) % [place] % (Auto) 4.8 (2.6-8.5) % Eos % (Auto) 4.8 H (0-4.4) % Baso % (Auto) 0.5 (0.2-1.2) % Lymph # (Auto) 1.63 (0.9-3.2) K/mm3 [place] # (Auto) 0.4 (0.1-0.6) K/mm3 Eos # (Auto) 0.4 H (0-0.3) K/mm3 Baso # (Auto) 0.0 (0.0-0.1) K/mm3 Abs Immat Gran (auto) 0.03 (0.00-0.031) K/mm3 Absolute Neuts (auto) 5.6 (1.3-6.7) K/mm3 Absolute Nucleated RBC 0.000 (0.0-0.012) K/mm3 Nucleated RBC % 0.0 (0.0-0.2) % Sodium 138 (137-145) mmol/L Potassium 4.1 (3.4-5.0) mmol/L Chloride 106 (98-107) mmol/L Carbon Dioxide 24 (22-30) mmol/L Anion Gap 8 (4-12) mmol/L BUN 14 (7-17) mg/dL Creatinine 0.71 (0.7-1.0) mg/dL Estim Creat Clear Calc 85 ml/min Estimated GFR > 60 (59 - ) Glucose 103 (65-110) mg/dL Calcium 9.0 (8.4-10.2) mg/dL Total Bilirubin 0.3 (0.2-1.3) mg/dL AST 21 (14-36) U/L ALT 15 (6-35) U/L Alkaline Phosphatase 57 (38-126) U/L Total Protein 7.0 (6.3-8.2) g/dL Albumin 4.2 (3.5-5.1) g/dL Urine Color Yellow (Yellow) Urine Appearance Clear (Clear) Urine pH 5.5 (5.0-9.0) Ur Specific [place] 1.020 (1.001-1.035) Urine Protein Negative (Negative) mg/dL Urine Glucose (UA) Negative (Negative) mg/dL Urine Ketones Negative (Negative) mg/dL Ur Blood (Man) Negative (Negative) Urine Nitrate Negative (Negative) Urine Bilirubin Negative (Negative) Urine Urobilinogen 0.2 (<2.0) mg/dL Add Ur Microanalysis Reviewed Leukocyte Esterase Rfl 1+ H (Negative) [place]/UL Urine RBC 0-2 (0-2) /hpf Urine WBC 0-5 (0-3) /hpf Ur Squamous Epith Cells None seen (Few) /hpf Urine Bacteria None seen /hpf Urine Casts 0-2 POC Urine HCG, Qual Negative (Negative) Imaging Data Radiologist's impression: ITS Impressions Abdomen/Pelvis CT 12/22/24 10:41 Impression: Probable 1.8 x 1.7 cm abscess in the right lower quadrant with adjacent soft tissue infiltration or phlegmon superiorly. No free air. No bowel obstruction. Discharge Plan Discharge Clinical Impression: Postoperative right lower quadrant abdominal pain, Thrombocytosis, Right lower quadrant abdominal abscess Patient Disposition: Still a Patient Condition: Stable Time of Disposition: 11:27
[2024-12-22 09:15] LABS: Basophils Percent Auto 0.5 % (0.2-1.2); Eosinophils Absolute Auto 0.4 K/mm3 (0-0.3); Eosinophils Percent Auto 4.8 % (0-4.4); Hematocrit 38.6 % (37.0-47.0); Hemoglobin 12.4 g/dL (12.0-15.0); Immature Granulocyte Absolute 0.03 K/mm3 (0.00-0.031); Immature Granulocyte Percent A 0.4 % (0-0.5); Lymphocytes Absolute Auto 1.63 K/mm3 (0.9-3.2); Lymphocytes Percent Auto 20.1 % (18.3-44.2); Mean Corpuscular HGB Conc 32.1 g/dl (32-36); Mean Corpuscular Hemoglobin 29.3 pg (26-34); Mean Corpuscular Volume 91.3 fl (80-100); Mean Platelet Volume 9.2 fl (7.4-10.4); Monocytes Absolute Auto 0.4 K/mm3 (0.1-0.6); Monocytes Percent Auto 4.8 % (2.6-8.5); Neutrophils Absolute Auto 5.6 K/mm3 (1.3-6.7); Neutrophils Percent Auto 69.4 % (45.5-73.1); Platelet Count Result 427 k/mm3 (150-375); Red Blood Count 4.23 M/mm3 (4.2-5.4); Red Cell Distribution Width 13.2 % (11.5-14.5); White Blood Count 8.1 K/mm3 (4.5-10.0)
[2024-12-22 09:25] LABS: Alanine Aminotransferase 15 U/L (6-35); Albumin Level 4.2 g/dL (3.5-5.1); Alkaline Phosphatase 57 U/L (38-126); Anion Gap 8 mmol/L (4-12); Aspartate Amino Transferase 21 U/L (14-36); Bilirubin,Total 0.3 mg/dL (0.2-1.3); Blood Urea Nitrogen 14 mg/dL (7-17); Carbon Dioxide 24 mmol/L (22-30); Chloride 106 mmol/L (98-107); Estimated CRCL calculation 85 ml/min; Estimated Glomerular Filt Rate > 60; Glucose 103 mg/dL (65-110); Potassium 4.1 mmol/L (3.4-5.0); Sodium 138 mmol/L (137-145)
[2024-12-22] MEDS: PIPERACILLIN/TAZ 4.5G/NS 100ML 4.5 GM/100 ML BAG IVPB (11:42)
[2024-12-22 11:47] VITALS: BP 104/78; PULSE 83; RESP 20; O2SAT 99
[2024-12-22 12:38] VITALS: BMI 27.7
--- NOTE | 2024-12-22 12:38 | ADMGEN ---
This patient, Jaky Lees, was admitted to [facility] Room 329-01. Patient/family oriented to hospital policies and general routines including ID bracelet, bed and alarms, visiting hours, pain management, procedures, bathroom and other care routines, personal items, smoking policy, room service/diet, and visiting hours. Information on how to activate the Rapid Response Team has been discussed. Patient/Family are encouraged to report perceived risks to care and to ask questions if they do not understand what they are told or what they should do.
[2024-12-22 13:08] VITALS: BP 111/84; PULSE 66; RESP 18; TEMP 36.7; O2SAT 100
--- NOTE | 2024-12-22 14:43 | P.HP_ITS ---
H&P: HPI History of Present Illness Date/Time: 12/22/24 14:43 Chief Complaint: Abdominal pain Narrative: Patient is a 39-year-old woman who on the 10 of December, 12 days ago, presented to the emergency room with right lower quadrant abdominal pain. [place] [address] and she was tender in the right lower quadrant. CT scan of the abdomen and pelvis showed a 9.5 mm dilated appendix that was enhancing and hyperemic consistent with acute appendicitis. The patient was taken to surgery on December 11. Laparoscopic appendectomy was performed. At surgery, it was noted that there was an inflammatory process associated with the cecum and that the appendix was abutting the cecum in this area. The appendix was sent to pathology but was read as a normal appendix. The surgeon, Dr. Massey, reviewed the CT scan in light of these findings with another radiologist. Re review of the CT suggested a diverticulum off the cecum and that the diagnosis was actually cecal diverticulitis. Patient was the sent home on a 10 day course of Augmentin and metronidazole. She took her antibiotics as instructed. She had a fairly normal postoperative recovery until yesterday. The right lower quadrant pain had been minimal but yesterday it became much worse, as bad as it was before she had her surgery. She bench Ali came to the emergency room and was evaluated. She was exquisitely tender in the right mid and lower quadrants. Her white blood cell count is in the normal range at 8100. Her H&H is normal and stable from December 10. CT scan of the abdomen and pelvis was repeated. This showed a small amount of ascites and a 1.8 x 1.7 cm fluid collection suspicious for a small abscess. Patient is still having pain and is very tender in the right lower abdomen. She is admitted now for IV antibiotics, pain control, and further management. Review of Systems Review of Systems: All systems reviewed & are unremarkable except as noted in HPI and below (HPI) [facility] Past Medical History Medical History No pertinent past medical history Surgical History Surgical History No pertinent past surgical history Family History Family History Other Adopted Unknown family medical history Social History Social History Smoking status: Current every day smoker Alcohol intake: current Substance use: never Substance use type: does not use Do You Feel Safe in your Home?: Yes Lack of Transportation: No Lack of Food: Never True Current Housing: I Have Housing Concerned About Future Housing: No Difficulty Paying Gas/Electric Bills: No Difficulty Paying for Meds: No Currently Unemployed: No Education: Bachelor's Degree Difficulty w/ Childcare or Family Care: No Spiritual care concerns: No Meds Home Medications and Allergies Home Medications ?Medication ?Instructions ?Recorded ?Confirmed ?Type amoxicillin 875 mg-potassium 1 tablet PO Q12H 10 days #20 tabs 12/11/24 12/22/24 Rx clavulanate 125 mg tablet hydrocodone 5 mg-acetaminophen 325 1 tablet PO Q4H PRN pain #10 tabs 12/11/24 0 12/22/24 Rx mg tablet metronidazole 500 mg tablet 500 mg PO Q8H 10 days #30 tabs 12/11/24 12/22/24 Rx methylprednisolone 4 mg tablets in See Rx Instructions PO PER PKG DIR 12/13/24 12/22/24 Rx a dose pack (Medrol ([place])) #21 ea Allergies Allergy/AdvReac Type Severity Reaction Status Date / Time No Known Allergies Allergy Verified 12/22/24 07:48 Vital Signs Vital Signs - 24 hr 12/22/24 07:53 12/22/24 08:00 12/22/24 11:47 Temperature 36.9 C Pulse Rate 94 83 Respiratory Rate 20 18 20 Blood Pressure 120/83 104/78 Pulse Oximetry 100 100 99 Oxygen Delivery Room Air 12/22/24 13:08 Temperature 36.7 C Pulse Rate 66 Respiratory Rate 18 Blood Pressure 111/84 Pulse Oximetry 100 Oxygen Delivery Exam Const: General: cooperative, healthy appearing, alert, awake and anxious; No acute distress Nutritional Appearance: well nourished and thin HENMT: Head: normocephalic and atraumatic Mouth: Yes Normal oral and palatal mucosa present Eyes: Conjunctivae: conjunctivae normal Pupils: Equal, round and reactive pupils present EOM: EOMs intact bilaterally Resp: Effort & Inspection: normal respiratory effort Auscultation: clear to auscultation bilaterally Cardio: Rate: regular rate Rhythm: regular rhythm Heart sounds: no gallops, no murmurs and no rubs GI: Inspection: no abdominal wall ecchymosis, non-distended, incision (All trocar sites healing well) and scaphoid GI Palp: Yes Soft to palpation, Yes Tenderness to palpation present (GI) (Tender with guarding right mid abdomen and lower quadrant), Yes Guarding due to palpation present (GI), No Hepatomegaly present, No Splenomegaly present and No Palpable mass present Skin: Lesions: no lesions Rashes: no rashes Neuro: General: no focal motor deficits and CN's II-XI intact bilaterally Cranial nerves: Yes Equal, round and reactive pupils present, Yes Bilaterally intact EOM present, Yes facial symmetry and Yes Midline tongue present Speech: normal speech Motor exam (neuro): 5/5 motor strength present throughout and Motor abnormalities not present Extrem: General: no clubbing, cyanosis or edema and edema Psych: Affect: normal affect Thought process: Normal thought process present Insight: Good insight present (Psych) H&P: Results Labs Labs: Short CBC 12/22/24 Range/Units 09:10 WBC 8.1 (4.5-10.0) K/mm3 Hgb 12.4 (12.0-15.0) g/dL Hct 38.6 (37.0-47.0) % Plt Count 427 H (150-375) k/mm3 BMP 12/22/24 09:10 Sodium 138 Potassium 4.1 Chloride 106 Carbon Dioxide 24 BUN 14 Creatinine 0.71 Glucose 103 Calcium 9.0 Liver Function 12/22/24 Range/Units 09:10 Total Bilirubin 0.3 (0.2-1.3) mg/dL AST 21 (14-36) U/L ALT 15 (6-35) U/L Alkaline Phosphatase 57 (38-126) U/L Albumin 4.2 (3.5-5.1) g/dL Urine 12/22/24 Range/Units 08:28 Urine Color Yellow (Yellow) Urine Appearance Clear (Clear) Urine pH 5.5 (5.0-9.0) Ur Specific [place] 1.020 (1.001-1.035) Urine Protein Negative (Negative) mg/dL Urine Glucose (UA) Negative (Negative) mg/dL Assessment and Plan Assessment and plan (1) Cecal diverticulitis: Code(s): K57.32 - Diverticulitis of large intestine without perforation or abscess without bleeding Status: Acute Assessment and Plan: Patient likely had cecal diverticulitis when she was here 12 days ago and had her appendectomy. She received Augmentin and metronidazole for an adequate length of treatment but has developed recurrent right lower quadrant pain most likely due to an abscess. (2) Right lower quadrant abdominal abscess: Code(s): K65.1 - Peritoneal abscess Status: Acute Assessment and Plan: Small, 1.8 x 1.7 cm, fluid collection in the area of the previous appendectomy. Should respond to IV antibiotics. Discussed with the patient that there is still a chance that this may not resolve and further surgery might be required. Will go ahead and bring her into the hospital for further treatment.
[2024-12-22] MEDS: ENOXAPARIN 40 MG/0.4 ML SYRINGE SUB-Q (15:35)
[2024-12-22] MEDS: LACTATED RINGERS 1,000 ML 100 ML IV CONT (15:35)
[2024-12-22] MEDS: PIPERACILLN/TAZ 3.375GM/NS50ML 3.375 GM/50 ML BAG IVPB (17:43)
[2024-12-22 20:00] VITALS: PULSE 65; RESP 18; O2SAT 97
[2024-12-22 22:00] VITALS: BP 109/68; PULSE 65; RESP 18; TEMP 36.6; O2SAT 97
[2024-12-23] MEDS: PIPERACILLN/TAZ 3.375GM/NS50ML 3.375 GM/50 ML BAG IVPB ×5 (00:39→23:41)
[2024-12-23] MEDS: LACTATED RINGERS 1,000 ML 100 ML IV CONT (01:30)
[2024-12-23 02:36] VITALS: O2SAT 96
[2024-12-23 05:50] VITALS: BP 103/68; PULSE 78; RESP 17; TEMP 36.1; O2SAT 100
[2024-12-23 06:29] LABS: Hematocrit 32.2 % (37.0-47.0); Hemoglobin 10.1 g/dL (12.0-15.0); Mean Corpuscular HGB Conc 31.4 g/dl (32-36); Mean Corpuscular Hemoglobin 28.9 pg (26-34); Mean Corpuscular Volume 92.3 fl (80-100); Mean Platelet Volume 9.5 fl (7.4-10.4); Platelet Count Result 329 k/mm3 (150-375); Red Blood Count 3.49 M/mm3 (4.2-5.4); Red Cell Distribution Width 13.2 % (11.5-14.5); White Blood Count 6.3 K/mm3 (4.5-10.0)
[2024-12-23 06:41] LABS: Anion Gap 4 mmol/L (4-12); Blood Urea Nitrogen 10 mg/dL (7-17); Calcium 8.2 mg/dL (8.4-10.2); Carbon Dioxide 26 mmol/L (22-30); Chloride 105 mmol/L (98-107); Estimated CRCL calculation 87 ml/min; Estimated Glomerular Filt Rate > 60; Glucose 89 mg/dL (65-110); Potassium 3.7 mmol/L (3.4-5.0); Sodium 135 mmol/L (137-145)
[2024-12-23 08:00] VITALS: O2SAT 100
--- NOTE | 2024-12-23 10:17 | P.PNGS_ITS ---
Progress Note: A&P Assessment and Plan (1) Right lower quadrant abdominal abscess: Code(s): K65.1 - Peritoneal abscess Status: Acute Assessment and Plan: * Small, RLQ fluid collection in the area of the previous appendectomy. Abdominal pain and tenderness improving. WBC count remains normal. * Continue IV antibiotics for possible intraabdominal abscess. Will likely discharge tomorrow on oral antibiotics. (2) Cecal diverticulitis: Code(s): K57.32 - Diverticulitis of large intestine without perforation or abscess without bleeding Status: Acute Assessment and Plan: * Not much inflammation around the cecum on her recent CT scan. [place] that she likely had cecal diverticulitis at the time of surgery. * Continue IV antibiotics for now. * Advance to a low fiber diet Plan I have discussed the patient's case and plan of care with Dr. Massey. Subjective Subjective Date/Time Seen: 12/23/24 10:17 Patient reports: feels better, pain is less, tolerating liquids well, flatus and afebrile Interval history: Patient denies having abdominal pain, but just has mild RLQ tenderness. Rating it at 2/10 when she is tender. She feels much better than when she was first admitted. She is tolerating full liquids well. WBC count remains normal. Exam Const: General: comfortable and no acute distress Orientation/consciousness : patient oriented x3 GI: Inspection: non-distended and incision (incisions healing well with no erythema or drainage) GI Palp: Yes Soft to palpation, No Tenderness to palpation present (GI), No Guarding due to palpation present (GI) and No Rebound tenderness present Objective Data Vital Signs Vital Signs: Vital Signs - 24 hr 12/22/24 11:47 12/22/24 13:08 12/22/24 20:00 Temperature 98.1 F Pulse Rate 83 66 65 Respiratory Rate 20 18 18 Blood Pressure 104/78 111/84 Pulse Oximetry 99 100 97 Oxygen Delivery Room Air Fraction of Inspired Oxygen 12/22/24 22:00 12/23/24 02:36 12/23/24 05:50 Temperature 97.9 F 97 F L Pulse Rate 65 78 Respiratory Rate 18 17 Blood Pressure 109/68 103/68 Pulse Oximetry 97 96 100 Oxygen Delivery Room Air Fraction of Inspired Oxygen 21 12/23/24 08:00 Temperature Pulse Rate Respiratory Rate Blood Pressure Pulse Oximetry 100 Oxygen Delivery Room Air Fraction of Inspired Oxygen Intake/Output Intake/Output: Intake & Output 12/20/24 12/21/24 12/22/24 12/23/24 23:59 23:59 23:59 23:59 Intake Total 940 1640 Balance 940 1640 Meds/Results Medications: Active Medications Generic Name Dose Route Start Last Admin Trade Name Freq PRN Reason Stop Dose Admin Acetaminophen 500 mg 12/22/24 15:03 Acetaminophen 500 Mg Tablet PO Q6H PRN Pain Rated 1-3 Enoxaparin Sodium 40 mg 12/23/24 09:00 12/23/24 08:15 Enoxaparin 40 Mg/0.4 Ml Syringe SUB-Q Not Given DAILY LEFTY Famotidine 20 mg 12/22/24 21:00 12/23/24 08:16 Famotidine 20 Mg Tablet PO Not Given Q12HR LEFTY Ibuprofen 800 mg in 200 mls @ 400 mls/hr 12/22/24 15:03 Caldolor 800 Mg/200 Ml IVPB Q6H PRN Breakthrough Pain Rated 1-3 or NPO Piperacillin/Tazobactam/Dextrose 3.375 gm in 50 mls @ 100 mls/hr 12/22/24 18:00 12/23/24 06:33 Zosyn 3.375 Gm/Ns 50 Ml IVPB Infused Q6HR LEFTY Infusion Morphine Sulfate 1 mg 12/22/24 15:03 Morphine Sulfate (*Crx) 2 Mg/Ml Inj IV PUSH Q2H PRN Breakthrough Pain Rated 4-6 or NPO Morphine Sulfate 2 mg 12/22/24 15:03 Morphine Sulfate (*Crx) 4 Mg/Ml Inj IV PUSH Q2H PRN Breakthrough Pain Rated 7-10 or NPO Naloxone HCl 0.1 mg 12/22/24 15:03 Naloxone Hcl 0.4 Mg/Ml Vial IV PUSH Q2M PRN Opiate Reversal Ondansetron HCl 4 mg 12/22/24 15:03 Ondansetron Inj 4 Mg/2 Ml Vial IV PUSH Q4H PRN Nausea And Vomiting Oxycodone/Acetaminophen 1 tablet 12/22/24 15:03 Oxycodone/Acetaminophen (*Crx) 5-325 Mg Tablet PO Q4H PRN Pain Rated 4-6 Radiology Results: ITS Impressions Abdomen/Pelvis CT 12/22/24 10:41 Impression: Probable 1.8 x 1.7 cm abscess in the right lower quadrant with adjacent soft tissue infiltration or phlegmon superiorly. No free air. No bowel obstruction. Labs Labs: Laboratory Results - last 24 hr 12/23/24 06:07 WBC 6.3 RBC 3.49 L Hgb 10.1 L Hct 32.2 L MCV 92.3 MCH 28.9 MCHC 31.4 L RDW 13.2 Plt Count 329 MPV 9.5 Sodium 135 L Potassium 3.7 Chloride 105 Carbon Dioxide 26 Anion Gap 4 BUN 10 Creatinine 0.69 L Estim Creat Clear Calc 87 Estimated GFR > 60 Glucose 89 Calcium 8.2 L
[2024-12-23 14:00] VITALS: BP 96/64; PULSE 71; RESP 18; TEMP 36.7; O2SAT 100
[2024-12-23 19:50] VITALS: BP 93/62; PULSE 62; RESP 16; TEMP 36.4; O2SAT 99
[2024-12-24 05:05] VITALS: BP 96/71; PULSE 62; RESP 16; TEMP 36.6; O2SAT 99
[2024-12-24] MEDS: PIPERACILLN/TAZ 3.375GM/NS50ML 3.375 GM/50 ML BAG IVPB ×2 (05:59→11:00)
--- NOTE | 2024-12-24 09:46 | P.DS_ITS ---
DS: Admitting Diagnosis Discharge Date 12/24/2024 Admitting Diagnosis Cecal diverticulitis Intra-abdominal fluid collection DS: Discharge Diagnosis Discharge Diagnosis (1) Cecal diverticulitis: Code(s): K57.32 - Diverticulitis of large intestine without perforation or abscess without bleeding Status: Acute (2) Right lower quadrant abdominal abscess: Code(s): K65.1 - Peritoneal abscess Status: Acute DS: Summary Hospital Course Reason for hospitalization: Patient is a 39-year-old woman who on the 10 of December, presented to the emergency room with right lower quadrant abdominal pain. [place] [address] and she was tender in the right lower quadrant. CT scan of the abdomen and pelvis showed a 9.5 mm dilated appendix that was enhancing and hyperemic consistent with acute appendicitis. The patient was taken to surgery on December 11. Laparoscopic appendectomy was performed. At surgery, it was noted that there was an inflammatory process associated with the cecum and that the appendix was abutting the cecum in this area. The appendix was sent to pathology but was read as a normal appendix. The surgeon, Dr. Massey, reviewed the CT scan in light of these findings with another radiologist. Re review of the CT suggested a diverticulum off the cecum and that the diagnosis was actually cecal diverticulitis. Patient was the sent home on a 10 day course of Augmentin and metronidazole. She took her antibiotics as instructed. She had a fairly normal postoperative recovery until yesterday. The right lower quadrant pain had been minimal but yesterday it became much worse, as bad as it was before she had her surgery. She then came to the emergency room and was evaluated. Workup revealed CT evidence of a small amount of ascites and a 1.8 x 1.7 cm fluid collection suspicious for a small abscess. Labs were unremarkable. She was then admitted now for IV antibiotics, pain control, and further management. Hospital Course: Patient was treated with broad-spectrum IV antibiotics and initially bowel rest. Her diet was slowly advanced as tolerated to a low-fiber diet. Her abdominal pain continued to improve. Labs were monitored and her white blood cell count remained normal. Bowels were moving. She was stable for discharge by 12/24/2024 on oral antibiotics. She will follow up in the office in 2 weeks. Status at Discharge Functional status at discharge: independent ambulation Overall status at discharge: patient is back to baseline Time Spent with Patient Time attestation: Total time spent providing and/or coordinating discharge services: Time spent: Greater than 30 minutes Exam Const: General: comfortable and no acute distress Resp: Effort & Inspection: normal respiratory effort Auscultation: clear to auscultation bilaterally Cardio: Rate: regular rate Rhythm: regular rhythm GI: Inspection: non-distended and incision (incisions dry and intact) GI Palp: Yes Soft to palpation, Yes Tenderness to palpation present (GI) (Mild right lower quadrant tenderness, much improved) and No Guarding due to palpation present (GI) Auscultation: normal bowel sounds Neuro: General: moves all extremities and no focal motor deficits Extrem: General: no calf tenderness and no edema Psych: Mental Status: mental status grossly normal Insight: Good insight present (Psych) DS: Data Data Completed and Pending Labs on day of discharge: Preliminary micro results at discharge 12/22/24 11:39 Blood Culture - Preliminary Blood 12/22/24 11:38 Blood Culture - Preliminary Blood Imaging Radiologist's impression: ITS Impressions Abdomen/Pelvis CT 12/22/24 10:41 Impression: Probable 1.8 x 1.7 cm abscess in the right lower quadrant with adjacent soft tissue infiltration or phlegmon superiorly. No free air. No bowel obstruction. Discharge Plan Discharge Attending physician on discharge: Chalo Massey Consulting providers: Lopez Sanabria; Peggy Rodrigez; Rajat No Discharging Clinician: Peggy Rodrigez Anticipated Discharge Date/Time: 12/24/24 09:37 Patient Disposition: Home Activity: other - see discharge instructions Diet: low fiber Discharge Instructions: * Continue low fiber x 2 weeks. Then switch to a high fiber diet if asymptomatic and not having any abdominal pain or tenderness. 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 * Follow-up with Dr. Massey in 2 weeks. Call the office sooner if you develop fever, abdominal pain, or vomiting. Our office will call you with time and date of appointment. Patient Instructions: Antibiotic Form, Low Fiber Diet (DC) Patient Language: Georgian Stand Alone Forms: General Discharge Information Follow-up/Referrals: Chalo Massey, [Physician] - 2 Weeks Discharge Medications: New amoxicillin-pot clavulanate 875-125 mg tablet 1 tablet PO Q12H Qty: 12 0RF metronidazole 500 mg tablet 500 mg PO Q8H Qty: 18 0RF Continued hydrocodone-acetaminophen 5-325 mg tablet 1 tablet PO Q4H PRN (Reason: pain) Qty: 10 0RF amoxicillin-pot clavulanate 875-125 mg tablet 1 tablet PO Q12H 10 Days Qty: 20 0RF Patient Comments: Took today, had 5 tabs left metronidazole 500 mg tablet 500 mg PO Q8H 10 Days Qty: 30 0RF Discontinued methylprednisolone [Medrol ([place])] 4 mg tablets,dose pack See Rx Instructions PO PER PKG DIR Qty: 21 0RF Rx Instructions: PO PER PKG DIR Date of admission: 12/22/24 11:26 Primary Care Provider: MerryAdriana Admitting Provider: Chalo Massey Attending physician on admission: Chalo Massey Condition: Stable
== END 2024-12-24 11:45 | disposition home or self-care (01) ==
LOC: ANHED 11:27 → ANH3MEDSUR 12:07
PROVIDERS: Surgery; Admitting Provider Surgery; Emergency Provider Student in an Organized Health Care Education/Training Program; PCP Registered Nurse; Visit Provider Surgery
DX: K57.32 Diverticulitis of large intestine without perforation or abscess without bleeding (principal); K65.1 Peritoneal abscess; Z90.49 Acquired absence of other specified parts of digestive tract; F17.200 Nicotine dependence, unspecified, uncomplicated; Z79.899 Other long term (current) drug therapy
CPT/HCPCS: 36415; 74177; 80048; 80053; 81001; 81025; 85025; 85027; 87040; 87086; 96361; 96365; 96372; 96376; 99285; G0378; J1650; J2543; J7120; Q9967